=== PATIENT | female | born 1955 | race Caucasian/White ===

== ENCOUNTER 2018-03-26 15:20 | Outpatient (CLI) | payer BC, SELFPAY ==
--- NOTE | 2018-03-26 15:06 | DI.RAD_ITS ---
SYMPTOM/DIAGNOSIS: RIGHT KNEE PAIN M25.561, S/P TWISTING. RIGHT KNEE: 03/26 Three views were obtained. There appears to be a knee joint effusion. Minimal hypertrophic degenerative spurring noted involving the bones of the knee. No other bony abnormality seen.
== END 2018-03-26 15:40 ==
PROVIDERS: PCP Internal Medicine; Visit Provider Nurse Practitioner
DX: M25.461 Effusion, right knee (principal); M76.891 Other specified enthesopathies of right lower limb, excluding foot; M25.561 Pain in right knee
CPT/HCPCS: 73562

== ENCOUNTER 2018-11-05 16:23 | Outpatient (CLI) | payer BC, SELFPAY ==
--- NOTE | 2018-11-05 15:15 | DI.RAD_ITS ---
SYMPTOM/DIAGNOSIS: LLQ PAIN, DIARRHEA, R10.32 FLAT AND UPRIGHT ABDOMEN: The visualized portions of the lung bases appear clear. There is no evidence of free air. There is a moderate quantity of stool, greater on the right. There are no dilated loops of large or small bowel. No pathologic calcifications are seen. IMPRESSION: No acute abnormality.
== END 2018-11-05 16:43 ==
PROVIDERS: PCP Internal Medicine; Visit Provider Nurse Practitioner
DX: R10.32 Left lower quadrant pain (principal); R19.7 Diarrhea, unspecified
CPT/HCPCS: 74019

== ENCOUNTER 2018-11-06 08:33 | Outpatient (CLI) | payer BC, SELFPAY ==
[2018-11-06 09:01] LABS: HCT 39.5 % (36.0-46.0); HGB 13.4 g/dL (12.0-15.5); Mean Corp. HGB Concentration 33.9 g/dL (32.0-36.0); Mean Corpuscular Hemoglobin 30.9 pg (27.0-33.0); Mean Corpuscular Volume 91.2 fL (80-95); Mean Platelet Volume 9.1 fL (8.0-11.0); Platelet Count 390 x1000/uL (130-400); RBC 4.33 m/cumm (4.00-5.20); RBC Distribution Width 12.8 % (11.7-14.6); White Blood Cell Count 7.96 k/cumm (4.4-10.8)
[2018-11-06 10:04] LABS: ALT 43 U/L (12-78); AST 25 U/L (15-37); Albumin 3.3 g/dL (3.4-5.0); Alkaline Phosphatase 265 U/L (46-116); Anion Gap 11.2 mmol/L (3-11); BUN 13 mg/dL (7-18); Bilirubin, Total 0.4 mg/dL (0.2-1.0); CO2 27.8 mmol/L (21.0-32.0); CREATININE 0.75 mg/dL (0.55-1.02); Calcium 9.4 mg/dL (8.5-10.1); Chloride 103 mmol/L (98-107); Cholesterol 210 mg/dL (50-200); Glucose 113 mg/dL (70-100); HDL Cholesterol 63 mg/dL (40-60); LDL CHOLESTEROL 122 mg/dL (<100); Potassium 4.5 mmol/L (3.5-5.1); Sodium 142 mmol/L (136-145); Total Protein 7.2 g/dL (6.4-8.2); Triglyceride 88 mg/dL (30-150)
== END 2018-11-06 08:53 ==
PROVIDERS: PCP Internal Medicine; Visit Provider Nurse Practitioner
DX: E66.9 Obesity, unspecified (principal); R10.9 Unspecified abdominal pain
CPT/HCPCS: 36415; 80053; 80061; 83721; 85027

== ENCOUNTER 2018-11-09 01:02 | Outpatient (CLI) | payer BC, SELFPAY ==
--- NOTE | 2018-11-09 14:30 | DI.MAMMO_ITS ---
SYMPTOMS/DIAGNOSIS: SCREENING, Z12.31 BILATERAL SCREENING MAMMOGRAMS: Mammograms were interpreted according to the usual protocol including computer analysis with CAD system, tomosynthesis and C view imaging. Comparison is made with exams from 2011 through 2016. The breasts are composed of heterogeneously dense, nodular fibroglandular tissue. Breast density category C. An area of nodularity is again noted in the upper outer quadrant of the left breast. No suspicious masses or suspicious microcalcifications are seen. IMPRESSION: Category 2C, negative mammogram with benign findings. Yearly screening mammography is recommended. MQSA ASSESSMENT OF FINDINGS: Negative with benign findings. Category 2. Patient will receive a letter notifying them of these results. Bi-RADS category C. The breasts are heterogeneously dense, which may obscure small masses.
== END 2018-11-09 01:22 ==
PROVIDERS: PCP Internal Medicine; Visit Provider Nurse Practitioner
DX: Z12.31 Encounter for screening mammogram for malignant neoplasm of breast (principal)
CPT/HCPCS: 77063; 77067

== ENCOUNTER 2018-11-15 01:16 | Outpatient (CLI) | payer BC, SELFPAY ==
--- NOTE | 2018-11-15 07:33 | DI.US_ITS ---
SYMPTOM/DIAGNOSIS: ABD PAIN AFTER EATING, R10.9 ABDOMEN ULTRASOUND: The aorta and vena cava are normal. The liver is normal. The gallbladder wall is 1.6 mm. in thickness. There are multiple small mobile echogenic foci within the gallbladder consistent with small gallstones, the largest stone measures up to 11 mm. in maximal diameter. There is no evidence of biliary obstruction. The pancreas is normal. The spleen is normal. The kidneys are normal. There is no evidence of free fluid. CONCLUSION: Cholelithiasis is demonstrated. There is no evidence of ductal dilatation and the examination is otherwise unremarkable.
== END 2018-11-15 01:36 ==
PROVIDERS: PCP Internal Medicine; Visit Provider Nurse Practitioner
DX: R10.9 Unspecified abdominal pain (principal); K80.20 Calculus of gallbladder without cholecystitis without obstruction
CPT/HCPCS: 76700

== ENCOUNTER 2019-06-05 16:10 | Outpatient (REF) | payer BC, SELFPAY ==
[2019-06-05 19:36] LABS: Alkaline Phosphatase 146 U/L (46-116)
[2019-06-05 19:43] LABS: GGT 93 U/L (5-55)
== END 2019-06-05 16:30 ==
LOC: LBO 16:10
PROVIDERS: PCP Nurse Practitioner; Visit Provider Nurse Practitioner
DX: R74.8 Abnormal levels of other serum enzymes (principal)
CPT/HCPCS: 82977; 84075

== ENCOUNTER 2020-08-12 02:10 | Outpatient (CLI) | payer MEDICARE, SELFPAY ==
--- NOTE | 2020-08-12 07:15 | DI.MAMMO_ITS ---
EXAM: MG MAMMO SCREENING CLINICAL HISTORY: screening,Z12.39. TECHNIQUE: Bilateral full field digital CC and MLO mammographic images were obtained with 3D tomosyn thesis and utilizing computer aided detection (CAD). COMPARISON: Prior mammograms dating back to 2010, the most recent being October 2018. Breast ultrasound 2016 was reviewed FINDINGS: Fibroglandular tissue is nodular and dense. In the anterior left breast there is asymmetric density which is unchanged from prior studies and the refore most probably benign. On 3D imaging of the left breast there is a well-defined oval noncalcif ied nodule measuring 5 x 4 millimeters located 7 cm in from the nipple. There is no significant arc hitectural distortion nor skin thickening-retraction. IMPRESSION: Nodular dense breast fibroglandular pattern. Left breast 5 x 4 millimeter nodule as described above. Spot compression view and ultrasound recomme nded BI-RADS Category 0 - Assessment Incomplete: Need additional imaging evaluation Breast Density - Category C - Heterogeneously dense Breast density Category C or D implies that the patient has dense breast tissue. Dense breast tissue can make it harder to find cancer on a mammogram. Dense breast tissue is also associated with an incr eased risk of breast cancer. This information about the result of the mammogram report was provided to the patient to raise their awareness. Use this report when you speak with the patient about their risks for breast cancer, which includes their family history. At that time, you may recommend additional screening tests (Ultrasoun d or MRI) as these tests may add significant information. A negative radiographic report should not delay biopsy if a dominant or clinically suspicious mass is present. Up to ten percent of cancers are not identified on mammography. A negative report may reinforce clinical impression. Adenosis and dense breasts may obscure an underlying neoplasm. False positive reports average 6 to 10%. Patient will receive a letter notifying them of these results.
== END 2020-08-12 02:11 ==
LOC: DI 02:10
PROVIDERS: PCP Nurse Practitioner; Visit Provider Nurse Practitioner
DX: Z12.31 Encounter for screening mammogram for malignant neoplasm of breast (principal); R92.8 Other abnormal and inconclusive findings on diagnostic imaging of breast
CPT/HCPCS: 77063; 77067

== ENCOUNTER 2020-08-12 03:00 | Outpatient (CLI) | payer MEDICARE, SELFPAY ==
[2020-08-12 11:12] LABS: HCT 42.8 % (36.0-46.0); HGB 14.3 g/dL (11.2-15.7); MCHC 33.4 % (32.0-36.0); MCV 92.6 fL (80-95); MPV 8.9 fL (8.0-11.0); Platelet Count 346 10^3/uL (130-400); RBC 4.62 10^6/uL (3.93-5.22); RDW 12.4 % (11.7-14.6); RDW-SD 42.5 fL
[2020-08-12 11:59] LABS: Hemoglobin A1C 6.1 % (<5.7)
[2020-08-12 14:44] LABS: ALT 30 U/L (14-59); AST 18 U/L (15-37); Albumin 3.8 g/dL (3.4-5.0); Alkaline Phosphatase 132 U/L (46-116); Anion Gap 9.7 mmol/L (3-11); BUN 14 mg/dL (7-18); Bilirubin, Total 0.4 mg/dL (0.2-1.0); CO2 26.3 mmol/L (21.0-32.0); CREATININE 0.9 mg/dL (0.55-1.02); Calcium 9.2 mg/dL (8.5-10.1); Calculated LDL 149 mg/dL (<100); Chloride 103 mmol/L (98-107); Cholesterol 245 mg/dL (<200); Glucose 132 mg/dL (74-106); HDL Cholesterol 63 mg/dL (40-60); Potassium 4.3 mmol/L (3.5-5.1); Sodium 139 mmol/L (136-145); Total Protein 7.1 g/dL (6.4-8.2); Triglyceride 165 mg/dL (<150)
== END 2020-08-12 03:01 | disposition home or self-care (01) ==
LOC: LBO 03:01
PROVIDERS: PCP Nurse Practitioner; Visit Provider Nurse Practitioner
DX: R73.01 Impaired fasting glucose (principal); R79.89 Other specified abnormal findings of blood chemistry; Z13.6 Encounter for screening for cardiovascular disorders
CPT/HCPCS: 36415; 80053; 80061; 85027; 83036

== ENCOUNTER 2020-08-13 01:19 | Outpatient (CLI) | payer MEDICARE, SELFPAY ==
--- NOTE | 2020-08-13 | DI.MAMMO_ITS ---
EXAM: MG MAMMO SCREEN CALL BACK UNI CLINICAL HISTORY: F/U MAMMO, ASYMMETRIC DENSITY LT BREAST,R92.8. TECHNIQUE: Full field digital CC and MLO spot 3D compression mammographic images were obtained with 3D tomosynthesis and utilizing computer aided detection (CAD). COMPARISON: Prior mammograms, the most recent being yesterday's screening mammogram 08/12/2020. FINDINGS: Additional views do not dissipate the newly described left breast nodule. Left breast ultrasound performed following today's diagnostic mammogram reveals multiple hemorrhagic microcyst, 1 of which corresponds to this nodule. See that separate ultrasound report . Most importa ntly, the ultrasound does not reveal a new solid lesion in all 4 quadrants of the left breast. IMPRESSION: Hemorrhagic microcyst corresponding to the new nodule on the mammogram. Appropriate follow-up is keep this patient yearly mammogram schedule, with earlier imaging if a self detected breast changes noted. BI-RADS Category 2 - Benign Findings Breast Density - Category C - Heterogeneously dense Breast density Category C or D implies that the patient has dense breast tissue. Dense breast tissue can make it harder to find cancer on a mammogram. Dense breast tissue is also associated with an incr eased risk of breast cancer. This information about the result of the mammogram report was provided to the patient to raise their awareness. Use this report when you speak with the patient about their risks for breast cancer, which includes their family history. At that time, you may recommend additional screening tests (Ultrasoun d or MRI) as these tests may add significant information. A negative radiographic report should not delay biopsy if a dominant or clinically suspicious mass is present. Up to ten percent of cancers are not identified on mammography. A negative report may reinforce clinical impression. Adenosis and dense breasts may obscure an underlying neoplasm. False positive reports average 6 to 10%. Patient will receive a letter notifying them of these results.
--- NOTE | 2020-08-13 | DI.US_ITS ---
EXAM: US BREAST LT LIMITED CLINICAL HISTORY: F/U MAMMO, ASYMMETRIC DENSITY LT BREAST,R92.8. TECHNIQUE: Limited ultrasound of the left breast was performed. COMPARISON: Today's diagnostic mammogram was reviewed. Also prior mammograms including the screenin g mammogram of 08/12/2020 FINDINGS: At the 1 o'clock position there is a 4 x 3 millimeter microcysts. At the 2 o'clock position there ar e 2 findings. The deeper finding is a 10 x 6 millimeter simple cyst. More superficially there is a 9 x 6 millimeter hemorrhagic cyst. At the 4 o'clock position there is a 3 millimeter microcysts. This probably corresponds to the findi ng on the mammogram. At 8 o'clock position there are 2 microcysts measuring 3 and 5 millimeters. No ominous solid lesions in all 4 quadrants IMPRESSION: Multiple microcysts, both simple and hemorrhagic. One of these corresponds to the new nodule on the mammogram. Most importantly, there are no new ominous solid lesions. Appropriate follow-up is to keep this patient yearly mammogram schedule and I recommend repeat ultras ound examination at the time of the next yearly mammogram, with earlier imaging if a self detected br east change is noted.. BI-RADS Category 2 - Benign Findings Breast Density - Category C - Heterogeneously dense Breast density Category C or D implies that the patient has dense breast tissue. Dense breast tissue can make it harder to find cancer on a mammogram. Dense breast tissue is also associated with an incr eased risk of breast cancer. This information about the result of the mammogram report was provided to the patient to raise their awareness. Use this report when you speak with the patient about their risks for breast cancer, which includes their family history. At that time, you may recommend additional screening tests (Ultrasoun d or MRI) as these tests may add significant information. A negative radiographic report should not delay biopsy if a dominant or clinically suspicious mass is present. Up to ten percent of cancers are not identified on mammography. A negative report may reinforce clinical impression. Adenosis and dense breasts may obscure an underlying neoplasm. False positive reports average 6 to 10%. Patient will receive a letter notifying them of these results.
== END 2020-08-13 01:20 ==
LOC: DI 01:19
PROVIDERS: PCP Nurse Practitioner; Visit Provider Nurse Practitioner
DX: Z12.31 Encounter for screening mammogram for malignant neoplasm of breast (principal); R92.8 Other abnormal and inconclusive findings on diagnostic imaging of breast; N60.12 Diffuse cystic mastopathy of left breast
CPT/HCPCS: 76642; 77063; 77067

== ENCOUNTER 2020-08-25 02:48 | Outpatient (CLI) | payer MEDICARE, SELFPAY ==
[2020-08-26 12:22] LABS: COVID-19 RT-PCR UVMMC Result Positive (Negative)
== END 2020-08-25 02:49 | disposition home or self-care (01) ==
PROVIDERS: PCP Nurse Practitioner; Visit Provider Nurse Practitioner
DX: Z20.822 Contact with and (suspected) exposure to COVID-19 (principal)
CPT/HCPCS: U0003; U0005

== ENCOUNTER 2020-08-28 05:35 | Outpatient (CLI) | payer MEDICARE, SELFPAY ==
[2020-08-28 12:35] VITALS: BP 147/87; PULSE 111; RESP 24; TEMP 36.7; O2SAT 95
[2020-08-28] MEDS: Normal Saline 500 ML 30 ML IV (13:34)
[2020-08-28] MEDS: Normal Saline Flush 10 ML SYR IVP (13:35)
[2020-08-28 13:42] VITALS: BP 128/78; PULSE 83; RESP 20; TEMP 36.8; O2SAT 95
[2020-08-28 14:09] VITALS: BP 127/80; PULSE 81; RESP 22; TEMP 36.8; O2SAT 94
[2020-08-28 14:45] VITALS: BP 132/81; PULSE 85; RESP 18; TEMP 36.8; O2SAT 98
[2020-08-28 15:09] VITALS: BP 125/79; PULSE 73; RESP 18; TEMP 36.9; O2SAT 96
== END 2020-08-28 05:36 | disposition home or self-care (01) ==
LOC: INF 05:35
PROVIDERS: PCP Nurse Practitioner; Visit Provider Family Medicine
DX: U07.1 COVID-19 (principal)
CPT/HCPCS: 96365

== ENCOUNTER → 2021-09-03 03:07 | Outpatient (CLI) | payer MEDICARE, SELFPAY ==
--- NOTE | 2021-09-03 07:30 | DI.RAD_ITS ---
Exam(s) XR HAND LT COMPLETE EXAM: XR HAND LT COMPLETE CLINICAL HISTORY: pain base of thumb left,m79.642,m79.646. TECHNIQUE: 2D digital imaging was performed. COMPARISON: CR RIGHT HAND COMPLETE from 10/29/2009 FINDINGS: No evidence of fracture or subluxation nor abnormal soft tissue calcifications. Degenerative changes are noted at the 1st carpometacarpal joint. There are no erosions. There is focal soft tissue swel ling dorsal to the proximal interphalangeal joint of the 2nd-index finger, best seen on the lateral v iew. Similar finding also seen at the level of the 3rd-middle fingers same location. This appears t o be more prominent in the 2nd-index finger. Mild degenerative changes in the DIP joints. IMPRESSION: Focal soft tissue swelling dorsally at the level of the PIP joints of the 2nd and 3rd fingers. No ca lcification or radiopaque foreign body at these levels. No bone destruction. No erosions. DATA REPOSITORY: RADIATION DOSE DELIVERED:
== END ==
PROVIDERS: PCP Nurse Practitioner; Visit Provider Nurse Practitioner
DX: M79.642 Pain in left hand (principal); M79.645 Pain in left finger(s); M25.48 Effusion, other site
CPT/HCPCS: 73130

== ENCOUNTER 2021-09-22 02:31 | Outpatient (CLI) | payer MEDICARE, SELFPAY ==
--- NOTE | 2021-09-22 07:45 | DI.MAMMO_ITS ---
Exam(s) MAMMO SCREENING EXAM: MAMMO SCREENING CLINICAL HISTORY: screening Z12.39 FOR BREAST CANCER TECHNIQUE: Mammograms were interpreted according to the usual protocol including computer analysis w [employer] CAD system, tomosynthesis and C-view imaging. COMPARISON: 2012 through 2020 FINDINGS: The breasts are composed of heterogeneously dense fibroglandular densities, Breast Density category C . No suspicious masses or suspicious microcalcifications are seen. Nodule in the upper outer quadrant left breast seen on previous exams to represent a cyst. Other smaller nodules bilaterally. No skin thickening or abnormal axillary lymph nodes are seen. There has been no significant change from prior exams. IMPRESSION: BI-RADS Cat 2 - Benign Findings Yearly screening mammography is recommended. Breast Density Category C, heterogeneously Dense. The mammogram demonstrates the patient's breast tissue is dense. Dense breast tissue is very common a nd is not abnormal but dense breast tissue can make it harder to find cancer on a mammogram. Also, de nse breast tissue may increase breast cancer risk. This information about the result of the mammogram report was provided to the patient to raise their awareness. Use this report when you speak with the patient about their risks for breast cancer, which includes their family history. At that time, you may recommend additional screening tests (Ultrasound or MRI) as they might be useful based on their r isk. A negative radiographic report should not delay biopsy if a dominant or clinically suspicious mass is present. Up to ten percent of cancers are not identified on mammography. A negative report may reinforce clinical impression. Adenosis and dense breasts may obscure an underlying neoplasm. False positive reports average 6 to 10%.
== END 2021-09-22 02:51 ==
PROVIDERS: PCP Nurse Practitioner; Visit Provider Nurse Practitioner
DX: Z12.31 Encounter for screening mammogram for malignant neoplasm of breast (principal); R92.8 Other abnormal and inconclusive findings on diagnostic imaging of breast
CPT/HCPCS: 77063; 77067

== ENCOUNTER 2022-06-09 11:01 | Outpatient (REF) | payer MEDICARE, SELFPAY ==
[2022-06-11 15:01] LABS: Influenza A RNA Result Positive (Negative); Influenza B RNA Result Negative (Negative); RSV RNA Result Negative (Negative)
[2022-06-11 15:05] LABS: COVID-19 RT-PCR UVMMC Result Negative (Negative)
== END 2022-06-09 11:02 | disposition home or self-care (01) ==
LOC: LBN 11:01
PROVIDERS: Nurse Practitioner Family; PCP Nurse Practitioner; Visit Provider Nurse Practitioner
DX: J02.9 Acute pharyngitis, unspecified (principal); R05.9 Cough, unspecified; Z20.822 Contact with and (suspected) exposure to COVID-19
CPT/HCPCS: 87631; U0003; 87070

== ENCOUNTER → 2023-02-01 02:21 | Outpatient (CLI) | payer MEDICARE, SELFPAY ==
--- NOTE | 2023-02-01 07:45 | DI.MAMMO_ITS ---
Exam(s) MAMMO SCREENING EXAM: MAMMO SCREENING CLINICAL HISTORY: screening,Z12.39 TECHNIQUE: Mammograms were interpreted according to the usual protocol including computer analysis w [employer] CAD system, tomosynthesis and C-view imaging. COMPARISON: 2012 through 2021 FINDINGS: The breasts are composed of heterogeneously dense fibroglandular densities, Breast Density category C . No suspicious masses or suspicious microcalcifications are seen. Area of nodularity in the upper out er quadrant of the left breast again noted, seen to be a cyst on prior ultrasound. No skin thickening or abnormal axillary lymph nodes are seen. There has been no significant change from prior exams. IMPRESSION: BI-RADS Cat 2 - Benign Findings Yearly screening mammography is recommended. Breast Density Category C, heterogeneously Dense. The mammogram demonstrates the patient's breast tissue is dense. Dense breast tissue is very common a nd is not abnormal but dense breast tissue can make it harder to find cancer on a mammogram. Also, de nse breast tissue may increase breast cancer risk. This information about the result of the mammogram report was provided to the patient to raise their awareness. Use this report when you speak with the patient about their risks for breast cancer, which includes their family history. At that time, you may recommend additional screening tests (Ultrasound or MRI) as they might be useful based on their r isk. A negative radiographic report should not delay biopsy if a dominant or clinically suspicious mass is present. Up to ten percent of cancers are not identified on mammography. A negative report may reinforce clinical impression. Adenosis and dense breasts may obscure an underlying neoplasm. False positive reports average 6 to 10%.
== END ==
PROVIDERS: PCP Nurse Practitioner; Visit Provider Nurse Practitioner
DX: Z12.31 Encounter for screening mammogram for malignant neoplasm of breast (principal)
CPT/HCPCS: 77063; 77067

== ENCOUNTER → 2023-03-07 01:48 | Outpatient (CLI) | payer MEDICARE, SELFPAY ==
--- NOTE | 2023-03-07 07:45 | DI.DEXA_ITS ---
Exam(s) XR DEXA BONE DENSITY W/WO ZIA EXAM: XR DEXA BONE DENSITY W/WO ZIA CLINICAL HISTORY: screening for osteoporosis in postmenopausal woman,z78.0 TECHNIQUE: [employer] C densitometer analysis of left hip, lumbar spine and left forearm. Lat eral survey image of the thoracic and lumbar spine. COMPARISON: No exams were available for comparison FINDINGS: Lateral view of the thoracic and lumbar spine shows kyphosis but no evidence of compression fractures . Bone mineral density measurements of the lumbar spine correspond to a total T-score of 0.3, in the n ormal range. Bone mineral density measurements of the left hip correspond to a total T-score of -0.5. The femora l neck T-score is -0.9, in the normal range.. Theleft forearm bone mineral density measurements correspond to a T-score of the distal 3rd of 0.1, in the normal range.. IMPRESSION: Normal bone mineral density.
== END ==
PROVIDERS: PCP Nurse Practitioner; Visit Provider Nurse Practitioner
DX: Z78.0 Asymptomatic menopausal state (principal); Z13.820 Encounter for screening for osteoporosis
CPT/HCPCS: 77080

== ENCOUNTER → 2023-03-30 11:35 | Outpatient (BNVA) | payer MEDICARE, SELFPAY | PROVIDERS: PCP Nurse Practitioner; Referring Provider Nurse Practitioner; Visit Provider Physical Therapy Assistant | DX: Z12.11 Encounter for screening for malignant neoplasm of colon (principal); Z80.0 Family history of malignant neoplasm of digestive organs ==

== ENCOUNTER 2023-04-28 06:10 | Day surgery (SDC) | payer MEDICARE, SELFPAY ==
--- NOTE | 2023-04-27 21:58 | W.COLOREPORT ---
Date of service: 04/28/23 Time of Service: 08:19 Colonoscopy Report Date of procedure: 04/28/23 Pre-op diagnosis general: CRC screening /family hx of CRC Post-op diagnosis procedure note: other (diverticula) Surgeon: Saritha Lloyd Anesthesia Type: General:No Airway Estimated blood loss (mL): 0 Pathology: none sent Complications: None Disposition: same day Prep: Miralax/Dulcolax Retraction Time: n/a Procedure Description: After informed consent was obtained the patient was taken to the procedure room and placed in a left decubitous position. Monitors were applied and a time out was done. The patients name, date of , procedure, allergies to medications and metal in their body was reviewed. The patient was then sedated. Once sedated and comfortable a rectal exam was done. External exam was normal. Internal exam revealed a normal sphincter tone and no palpable masses. The scope was then introduced and retrofelexed. No internal hemorrhoids were identified. The prep was BBPS 3 in left colon. She has moderate diverticular disease of the sigmoid colon. There are multiple medium mouth diverticula in the sigmoid colon. There is no signs of active bleeding or infection. Once we get to 30 cm, I am unable to pass the scope or visualize the lumen. We tried multiple procedures including placing the patient patient on her back and applying abdominal pressure, but I am unable to pass the scope. Procedure was abandoned for patient's safety. Patient will go for a barium enema. The patient tolerated the procedure well and there were no immediate complications. Follow up: After barium enema
--- NOTE | 2023-04-27 21:58 | W.PM.DSUDISC ---
Date of service: 04/28/23 Time of Service: 08:21 Discharge Plan Disposition Patient Disposition: Home Condition: Good Discharge Details Reason For Visit: CRC screening Attending Provider: Saritha Lloyd Primary Care Provider: Aicha Frye Home Meds and New Rx's Prescriptions: Continued omega-3 fatty acids 500 mg capsule 500 mg PO DAILY cholecalciferol (vitamin D3) 50 mcg (2,000 unit) capsule 50 mcg PO DAILY B-complex with vitamin C Tablet 1 tab PO DAILY bupropion HCl [Wellbutrin XL] 150 mg tablet extended release 24 hr 150 mg PO QAM Qty: 90 3RF sertraline 100 mg tablet See Rx Instructions .ROUTE .COMPLEX Qty: 90 3RF Dose Instruction: TAKE 1 TABLET BY MOUTH DAILY Rx Instructions: TAKE 1 TABLET BY MOUTH DAILY Discontinued polyethylene glycol 3350 17 gram/dose powder 238 g PO ONCE Qty: 238 0RF Rx Instructions: take per colonoscopy instructions bisacodyl [Dulcolax (bisacodyl)] 5 mg tablet,delayed release (DR/EC) 5 mg PO ONCE Qty: 4 0RF Rx Instructions: take per colonoscopy instructions Discharge Instructions Additional Instructions: [facility] Colonoscopy Post-Op Instructions Instructions for Everyone who is given Anesthesia: For your safety, please do the following for the next twenty-four (24) hours: *Do Not operate a motor vehicle (car, truck, motorcycle, etc.) *Do Not drink alcoholic beverages or use any recreational drugs for the first 24 hours or while taking pain medications. The medications in your body may have a reaction that can be dangerous. *Do Not make any important decisions or sign any important papers. Findings: Diverticula-make sure you are moving your bowels on a regular basis and not straining to go to the bathroom. If you find that you are having issues with constipation/straining, it is recommended you to start a fiber supplement daily such as Metamucil. Follow up: Barium enema. The hospital will contact you to schedule 1. No lifting over 20 pounds or strenuous activity for the first 24 hours after your procedure. After 24 hours there are no restrictions on your activity but you may feel fatigued for a few days. 2. After you arrive home you may have a light meal and return to your normal diet as you can tolerate it without feeling sick to your stomach. 3. You may have a bloated, gaseous feeling in your belly (abdomen) after a colonoscopy. Passing gas and belching will help. Walking or lying down on your left side with your knees flexed may relieve the discomfort. Call the office at [phone] (Office) or [phone] (Hospital) right away if you notice any of the following: a.Vomiting of blood or ?coffee ground stools?. b.Rectal bleeding 1Tbsp, blood clots or continuous bleeding. c.Severe belly (abdominal) pain. d.A hard distended belly (abdomen) and an inability to pass gas. 4. Please don?t expect to have a normal BM (bowel movement) for 2-3 days after your procedure. 5. If there are questions regarding the findings of your procedure, please contact your doctor 6. If you are unable to contact your doctor with a problem, contact the hospital at [phone]. 7. Continue all your regular medications unless directed otherwise. I understand the above instructions and have no questions. Signature of Patient or Adult Escort Name of Responsible Adult Escort Signature of Nurse Date/Time DIVERTICULAR DISEASE OVERVIEW???A diverticulum is a pouch-like structure that can form through points of weakness in the muscular wall of the colon (ie, at points where blood vessels pass through the wall). Diverticulosis affects men and women equally. The risk of diverticular disease increases with age. It occurs throughout the world but is seen more commonly in developed countries. WHAT IS DIVERTICULAR DISEASE? Diverticulosis???Diverticulosis merely describes the presence of diverticula. Diverticulosis is often found during a test done for other reasons, such as flexible sigmoidoscopy, colonoscopy, or barium enema. Most people with diverticulosis have no symptoms and will remain symptom free for the rest of their lives. A person with diverticulosis may have diverticulitis, or diverticular bleeding. Diverticulitis???Inflammation of a diverticulum (diverticulitis) occurs when there is thinning and breakdown of the diverticular wall. This may be caused by increased pressure within the colon or by hardened particles of stool, which can become lodged within the diverticulum. The symptoms of diverticulitis depend upon the degree of inflammation present. The most common symptom is pain in the left lower abdomen. Other symptoms can include nausea and vomiting, constipation, diarrhea, and urinary symptoms such as pain or burning when urinating or the frequent need to urinate. Diverticulitis is divided into simple and complicated forms. ?Simple diverticulitis, which accounts for 75 percent of cases, is not associated with complications and typically responds to medical treatment without surgery. ?Complicated diverticulitis occurs in 25 percent of cases and usually requires surgery. Complications associated with diverticulitis can include the following: ?Abscess ? a localized collection of pus ?Fistula ? an abnormal tract between two areas that are not normally connected (eg, bowel and bladder) ?Obstruction ? a blockage of the colon ?Peritonitis ? infection involving the space around the abdominal organ ?Sepsis ? overwhelming body-wide infection that can lead to failure of multiple organs Diverticular bleeding???Diverticular bleeding occurs when a small artery located within a diverticulum is eroded and bleeds into the colon. Diverticular bleeding usually causes painless bleeding from the rectum. In approximately 50 percent of cases, the person will see maroon or bright red blood with bowel movements. Is bleeding with a bowel movement normal?It is not normal to see blood in a bowel movement; this can be a sign of several conditions, most of which are not serious (eg, hemorrhoids) but some of which are serious and require immediate treatment. Anyone who sees blood after a bowel movement should consult with their healthcare provider to determine if further testing or evaluation is needed. DIVERTICULOSIS AND DIVERTICULITIS DIAGNOSIS???Diverticulosis is often found during tests performed for other reasons. ?Barium?enema ? This is an x-ray study that uses barium in an enema to view the outline of the lower intestinal tract. This is an older test and has been largely replaced by computed tomography (CT) scan. ?Flexible sigmoidoscopy ? This is an examination of the inside of the sigmoid colon with a thin, flexible tube that contains a camera. ?Colonoscopy ? This is an examination of the inside of the entire colon. ?CT scan ? A CT scan is often used to diagnose diverticulitis and its complications. If diverticulitis (not just diverticulosis) is suspected, the above three tests should not be used because of the risk of perforation. TREATMENT Diverticulosis???People with diverticulosis who do not have symptoms do not require treatment. However, most clinicians recommend increasing fiber in the diet, which can help to bulk the stools and possibly prevent the development of new diverticula, diverticulitis, or diverticular bleeding. Fiber is not proven to prevent these conditions in all patients but may help to control recurrent episodes in some. Increase fiber???Fruits and vegetables are a good source of fiber.? Fiber content of packaged foods can be calculated by reading the nutrition label. Seeds and nuts???Patients with diverticular disease have historically been advised to avoid whole pieces of fiber (such as seeds, corn, and nuts) because of concern that these foods could cause an episode of diverticulitis. However, this belief is completely unproven. We do not suggest that patients with diverticulosis avoid seeds, corn, or nuts. Diverticulitis???Treatment of diverticulitis depends upon how severe your symptoms are. Home treatment???If you have mild symptoms of diverticulitis (mild abdominal pain, usually left lower abdomen), you can be treated at home with a clear liquid diet and oral antibiotics. However, if you develop one or more of the following signs or symptoms, you should seek immediate medical attention: ?Temperature >100.1?F (38?C) ?Worsening or severe abdominal pain ?An inability to tolerate fluids Hospital treatment???If you have moderate to severe symptoms, you may be hospitalized for treatment. During this time, you are not allowed to eat or drink; antibiotics and fluids are given into a vein. If you develop an abscess of the colon, you may require drainage of the abscess (usually performed by placing a drainage tube across the abdominal wall) or by surgically opening the affected area. Surgery???If you develop a generalized infection in the abdomen (peritonitis), you will usually require an emergency operation. A two-part operation may be necessary in some cases. ?The first operation involves removal of the diseased colon and creation of a colostomy. A colostomy is an opening between the colon and the skin, where a bag is attached to collect waste from the intestine. The lower end of the colon is temporarily sewed closed to allow it to heal. ?Approximately three to six months later, a second operation is performed to reconnect the two parts of the colon and close the opening in the skin. You are then able to empty your bowels through the rectum. Sometimes patients require up to a year to recover from the first operation, depending on how sick they were. In non-emergency situations, the diseased area of the colon can be removed and the two ends of the colon can be reconnected in one operation, without the need for a colostomy. Surgery versus medical therapy???An operation to remove the diseased area of the colon may be necessary if you do not improve with medical therapy. After an episode of uncomplicated diverticulitis, elective surgery is generally not required as the risk of another attack or requiring emergency surgery is low. However, patients with persistent symptoms attributable to diverticulitis, a history of complicated diverticulitis, or a compromised immune system should be evaluated for possible surgery to prevent another attack. In such patients, another attack has been associated with a higher risk of complications or . Of course, the decision will also depend in part upon your other medical conditions and ability to undergo surgery. In many cases, an elective operation can be performed laparoscopically, using small incisions, rather than the typical vertical (up and down) abdominal incision. Laparoscopic surgery usually allows you to recover more quickly and shortens the hospital stay. After diverticulitis resolves???After an episode of diverticulitis resolves, if you have not had a recent colonoscopy, the entire length of the colon should be evaluated to determine the extent of disease and to rule out the presence of abnormal lesions such as polyps or cancer. Recommended tests include colonoscopy, barium enema and sigmoidoscopy, or CT colonography. Diverticular bleeding???Most cases of diverticular bleeding resolve on their own. However, some people will need further testing or treatment to stop bleeding, which may include a colonoscopy, angiography (a treatment that blocks off the bleeding artery), bleeding scan, or surgery. DIVERTICULAR DISEASE PROGNOSIS Diverticulosis???Over time, diverticulosis may cause no problems or it may cause episodes of bleeding and/or diverticulitis. Approximately 15 to 25 percent of people with diverticulosis will develop diverticulitis, while 5 to 15 percent will develop diverticular bleeding. Diverticulitis???Approximately 85 percent of people with uncomplicated diverticulitis will respond to medical treatment, while approximately 15 percent of patients will need an operation. After successful treatment for a first attack of diverticulitis, one-third of patients will remain asymptomatic, one-third will have episodic cramps without diverticulitis, and one-third will go on to have a second attack of diverticulitis. The prognosis tends to remain similar following a second attack of diverticulitis. Only 10 percent of people remain symptom-free after a second attack. Subsequent attacks tend to be of similar severity, not increasing in severity as previously believed. High Fiber Diet What is Dietary Fiber? All fiber comes from plants, bushes, timothy or trees.? Of course, the ones that we eat provide us with fruits, vegetables and grains.? There are many different types of fiber but the three that are most important to the health of the body are: Insoluble Fiber This fiber does not dissolve in water, nor is it fermented by the bacteria residing in the colon.? Rather, it retains water and in so doing, helps to promote a larger, bulkier and more regular bowel activity.? This, in turn, may be important in preventing disorder such as diverticulosis and hemorrhoids, and in sweeping out certain toxins and cancer causing carcinogens.? Sources of insoluble fiber are: ? whole grain wheat and other whole grains ? corn bran, including popcorn, unflavored and unsweetened ? nuts and seeds ? potatoes and the skins from most fruits from trees such as apples, bananas and avocados ? many green vegetables such as green beans, zucchini, celery and cauliflower ? some fruit plants such as tomatoes and kiwi Soluble Fiber These fibers are fermented or used by the colon bacteria as a food source or nourishment.? When these good bacteria grow and thrive, many health benefits occur in both the colon and the body.? Soluble fiber is present in some degree in most edible plant foods, but the ones with the most soluble fiber include: ? legumes such as peas and most beans, including soybeans ? oats, rye and barley ? many fruits such as berries, plums, apples bananas and pears ? certain vegetables such as broccoli and carrots ? most root vegetables ? psyllium husk supplement products Benefits of a High Fiber Diet The health benefits of a high fiber diet, consumed on a regular basis and reaching recommended amounts (below), are now fairly well-defined. There are some additional benefits in the early research stage with the prebiotic soluble fibers. What is now known regarding a high fiber diet include: Bowel Regularity A high fiber diet promotes regularity with a softer, bulkier and regular stool pattern. This decreases the chance of hemorrhoids, diverticulosis and perhaps colon cancer. Cholesterol and Reduced Triglycerides The soluble fibers are the ones that will reduce cholesterol levels when used on a regular basis. Psyllium husk and prebiotic soluble fiber will also reduce cholesterol. They may also reduce the incidence of coronary heart disease. Oats, flax seeds and legumes or beans are the recommended fibers. Colon Polyps and Cancer It is still not certain if a high fiber diet helps prevent colon cancer. Considerable research suggests that this may occur. Certainly it makes sense to increase regularity and so speed the movement of cancer causing carcinogens through the bowel. In addition, reducing a heavy meat diet reduces the bile flow from the liver in a favorable way. This, too, reduces the amount of carcinogens that reach and are manufactured in the colon. Finally, a high fiber diet, including prebiotic soluble fiber, increases the integrity and health of the wall of the colon. The risk of cancer may be reduced. Colon Wall Integrity A high fiber diet changes the bacterial makeup of the colon toward a more favorable balance. For instance, it is known that those people with obesity, diabetes type 2 and inflammatory bowel disease have a predominance of bad bacteria in the colon. This, in turn, may render the bowel wall weak and allow bacteria and, indeed, even toxins to seep through. A high fiber diet with a modest reduction in animal and meat products may return the bacterial makeup to a more positive balance. This, in particular, has been seen when the soluble fiber prebiotics are added to the diet. Blood Sugar Soluble fiber such as in legumes (beans), oats and in prebiotic fibers slows the absorption of blood sugar and so helps regulate the sugar in the blood. Insoluble fiber on a regular basis is associated with reduced risk of type 2 diabetes. Weight Loss High fiber diets are more filling and give a sense of fullness sooner than an animal and meat based diet does. In addition, the soluble prebiotic fibers have been shown to turn off the hunger hormones produced in the wall of the gut and to increase the hormones that give a sense of fullness. Those hormones are made in the wall of the gut. New medical research has shown that the bacterial makeup in the colon in overweight people is abnormal to the extent that they manufacture and absorb almost twice the number of calories through the colon wall as do normals. Prebiotic fibers (below) will help change this hormonal balancein a favorable way. Bacteria and the Function of the Colon The colon finishes the digestive process. Hopefully, the waste products move through in a nice regular manner. Insoluble fibers help this process by retaining water and so producing a bulkier, softer stool, which is easy to pass. The additional role of the colon is to provide a home for an enormous number of micro-organisms, mostly bacteria. Recent research has shown that there are over 1,000 species of bacteria with a total bacterial count ten times the number of cells in the body. These bacteria play a major role in keeping the colon wall itself healthy. In addition, these good bacteria produce a very strong immune system for the body. They significantly increase calcium absorption and bone density. They provide other documented benefits. It is the soluble fibers in the diet that are so effective in stimulating the growth of good colon bacteria. How Much is Enough? The amount of fiber in food is measured in grams.? National nutritional authorities recommend the following amounts of dietary fiber daily. Under Age 50? Over Age 50 Men? 38 grams? 30 grams Women??? 25 grams? 21 grams For a week or so, it is best to tally the amount of fiber you are consuming.? Boxed and packaged foods will have the amount of fiber per serving on the nutrition label. Which Fibers and Which Foods are Best? As noted, healthy fiber is only found in plants. The three major categories are whole grains, fruits and vegetables. Whole Grains Wheat, oats, barley, wild or brown rice, amaranth, buckwheat, bulgur, corn, millet, quinoa, rye, sorghum, teff and triticals. By far, wheat, oats and wild or brown rice are most common. Always buy whole grain products. White bread, baked goods and rolls almost always are made from wheat flour. Wheat flour is white because most of the fiber, vitamins and other nutrients have been removed. Try not buy enriched grains. What this means is that simple white flour has had vitamins added to it by the drum sprayer. The word, enriched, implies a good and healthy product. On the contrary, enriched means that most of the fiber has been removed and a few vitamins added. Fruits Fruits come from trees such as apple and pear or from bushes or timothy. You should eat a wide variety of fruits, preferably with every meal. In many cases, the skin of a fruit such as apple will contain much of the insoluble fiber while the pulp contains most of the soluble fiber. To the extent possible, buy organic fruits as these will have little or no pesticides. Always wash fruit. Vegetables Eat a wide variety of vegetables. They should be a mainstay of lunch and dinners. Frozen vegetables retain as much nutrition and fiber as fresh vegetables. As with fruit, try to buy organic to reduce any residual pesticide ingestion. Wash fresh vegetables thoroughly. Cruciferous vegetables such as broccoli, [place] sprouts and cauliflower contain certain chemicals such as sulforaphane. This substance has very strong anti-cancer properties and should be eaten frequently. Legumes, Beans, Peas and Soybeans These vegetables have plenty of soluble fiber and should be part of a varied vegetable intake. Beans, in particular, contain a certain type of fiber that may lead to harmless gas or bloating. Nuts and Seeds These are rich sources of fiber and are a good substitute for sweets such as candies and baked sweet goods. While nuts and seeds are rich in fiber, they also contain vegetable fat and so can and do add calories. Read the Labels As noted, fresh and frozen foods are usually better.? They have good nutrition and few, if any, chemicals added to them.? When buying packaged foods and, in particular grains, look for three things: ? The first word on the label should be whole, such as whole wheat or whole grain. ? Check out the calories and the amount of fiber in a serving. ? How many and what other additives or chemicals are added.? Fewer is always better.? Do you know what each additive does?? Some are added not for the benefit of the fashion buyer but rather for manufacturers.? These could and do include sugar, artificial flavor, chemicals to prevent oxidation and spoilage, emulsifiers to blend the product.? You have to be a production posting clerk. Fiber Facts, Nuggets and Pearls ? For breakfast you can easily get the day started well by using a high fiber, whole grain cereal.? Check the labels.? Add fruit such as blueberries and bananas.? If you are an egg eater, use whole wheat or grain toast.? Adding wheat germ gives you a good fiber kick. ? Always use whole grain or wheat with rolls and sandwiches.? Does your fast food store not have them?? Perhaps you look elsewhere.? Eating an occasional black garner or veggie burger provides variety. ? Snacks should consist of fruit and/or nuts.? While nuts are loaded with fiber, they are an energy rich food, meaning they have a lot of calories in a small packet. ? Fruit juices should contain pulp.? Clear juices such as clear orange, pear or apple juice contain little fiber and have a lot of fructose.? Prune juice is usually high in fiber. ? Homemade soups ? adding fresh or frozen vegetables to a chicken or vegetable stock is a good way to start homemade soup. ? Salads ? adding cooked and then chilled vegetables provide great flavoring to almost any salad.? Remember, a emanuel salad has lots of cooked corn in it.? Small slices of apples or oranges and nuts such as chopped walnuts or sliced almonds always adds taste, variety and fiber to almost any salad. ? Fruit ? Try to eat fruit of some type with almost every meal. ? Rethink how you place the various foods on your dinner plate.? Reducing the portions of the meat or animal food portion to the side with equal or more portions of vegetables, legumes and fruits portion always allows for more fiber.? There was never anything magic about making the meat or animal food portion the main part of the dinner plate.? Eating from smaller plates can, over time, trick your mind and care home habit of using a dinner plate.? Again, there is nothing magic in an 11, 12, or 13 inch dinner plate. Fiber Supplements There are a variety of fiber supplements available on the food or pharmacy shelves. Psyllium This soluble plant fiber has been used in [place] for over 2,000 years. It is a soluble fiber with mucilage in it. This acts to retain a lot of water and also is fermented by colon bacteria. When 7 grams a day are used, it does lower cholesterol. Metamucil in various forms is psyllium. Methyl Cellulose All the cellulose products come from finely ground wood chips which are then treated in a variety of ways such as boiling in acids. Methyl cellulose is an insoluble fiber which does dissolve in water. It is also an emulsifier, meaning it blends oils and water. Citrucel is methyl cellulose (MC). MC may not be appropriate for Crohn?s disease or ulcerative colitis as several medical studies have shown that certain emulsifiers dissolve the mucous lining of the colon in animals prone to Crohn?s disease. This then allows bacteria to invade the underlying tissue. Fiber and Gas Everyone has intestinal gas and that is a good thing.? It means that bacteria, hopefully the good ones, are thriving.? The normal amount of flatus passed each day depends on sex and what is eaten.? The normal number of flatus is 10-20 times a day.? When the bacteria that make intestinal gases are growing, it also means that other good bacteria are using the same fibers to grow and produce multiple health benefits, including the production of healthy short-chain fatty acids.? These substances are produced quietly in the colon and produce many health-related outcomes. Soluble fiber should always be used in a gradual manner.? If too much is consumed at any one time, then excess, but harmless, intestinal gas can occur.? People with irritable bowel syndrome are particularly prone to bloating and mild cramping.? In this instance, soluble fiber in the diet or supplement should be used in small doses and increased gradually. Finally, prebiotic fibers tend to cause the production of short-chain fatty acids which acidify the colon.? This, in turn, reduces or stops the growth of bacteria that make the smelly hydrogen sulfide gases that produce noxious flatus.? People who consume many vegetables with prebiotics or take a prebiotic fiber supplement often have non-odoriferous flatus. Fiber and Irritable Bowel Syndrome Irritable bowel syndrome (IBS) is one of the most common disorders of the lower digestive tract.? The symptoms of IBS can be quite varied.? They can be a mix of several symptoms such as constipation, diarrhea, crampy abdominal discomfort, bloating and gas.? An attack of IBS can be triggered by emotional tension and anxiety, poor dietary habits and certain medications.? It is now known that infections in the intestine can lead to long-term IBS symptoms.? Increased amounts of fiber in the diet can help relieve the symptoms of irritable bowel syndrome by producing soft, bulky stools.? This helps to normalize the time it takes for the stool to pass through the colon.? Recent medical research with newer techniques has shown some surprising and dramatic findings for IBS patients.? Specifically, there is a very significant and abnormal shift of bacteria from those that provide health benefits to those bad bacteria that we really do not want in the gut.? The technical name for this bad group of bacteria is called Firmicutes.? Along with this abnormal bacterial collection, there is a smoldering low-grade inflammation in the gut wall that may contribute to symptoms.? The goal for IBS patients should be to gradually increase the soluble dietary fibers in the diet so as to promote the growth of good bacteria and so suppress the bad ones along with the associated inflammation. IBS patients need to be careful of the amount of soluble fiber they consume.? The reason for this is that, while the good colon bacteria thrive on these fibers and produce health benefits, other gas-forming bacteria may generate excessive but harmless gas and subsequent bloating.? Thus, soluble plant fibers or a dietary prebiotic supplement should be taken in small initial doses and then gradually increased to tolerance. Fiber and Colon Polyps/Cancer Colon cancer is a major health problem. This disease is most common in Western cultures. It is not seen very often in rural cultures where the diet is mostly plant based. Usually, colon cancer starts out as a colon polyp, a benign mushroom-shaped growth. In time it grows, and in some people it becomes cancerous. Colon cancer is usually always curable if polyps are removed when found or if surgery is performed at an early stage. It is now known that people can inherit the risk of developing colon cancer, but diet is important, too. As noted, there is a very low rate of colon cancer in residents of countries where grains are unprocessed and retain their fiber. It seems that in the Western world, cancer-containing agents (carcinogens) remain in contact with the colon wall for a longer time and in higher concentrations. So, a large bulky stool may act to dilute these carcinogens by moving them through the bowel more quickly. Less carcinogenic exposure to the colon may mean fewer colon polyps and less cancer. A very current review of the entire world?s literature on the effect of fiber on colon polyps and cancer prevention has shown rather clearly that for every 10 grams of fiber added to the diet, there is a 10% reduction in incidence of colon cancer. So the recommended 30 gram fiber diet would result in a 30% less chance of getting these tumors. There are also substances produced in the colon by the good bacteria that seem to retard certain pre-cancer factors from developing. They are called short-chain fatty acids (SCFA). See above for description of SCFAs. A high fiber diet increases these substances. So, the combination of dietary fiber and the production of short-chain fatty acids have a clear health benefit. Fiber and Diverticulosis Prolonged, vigorous contraction of the colon over a long period of time may result in diverticulosis.? This increased pressure causes small and, eventually, larger ballooning pockets to form.? These pockets by themselves cause no problem.? However, sometimes they become infected (diverticulitis) or even break open (perforate) causing infection or inflammation within the abdomen (peritonitis).? A high fiber diet increases the bulk in the stool and thereby reduces the pressure within the colon.? By so doing, the formation of pockets may be reduced or possibly even stopped. In the past, many physicians were fearful that seeds as in tomatoes, nuts or berries were harmful and could get inside these pockets and rattle around, causing damage. We now know that this has never been the case and that these foods contain lots of fiber and are actually beneficial for diverticulosis patients. Certain bulking agents such as psyllium are traditional types of bulk producing supplements.? Psyllium is a soluble fiber.? Combining it with insoluble fiber as in wheat bran or corn bran (no gluten) can enhance this bulking effect even more.? A product containing a prebiotic, psyllium and wheat bran is probably a very good combination for bowel regularity. Prebiotinhttps://www.[employer]/ Regularity/Diverticulosis is one such product. Starting a Fiber Supplement ?When consumed at recommended levels,?dietary fiberhttps://www.[facility]oclinic.org/healthy-lifestyle/ixnvquooj-irl-hidoycd-eating/in-depth/fiber/art-70104334?mc_id=us&utm_source=[employer]&utm_medium=l&utm_content=content&utm_campaign=[employer]&lisa=[facility]&placementsite=[place]&eoktg=500661?is widely recognized to have health benefits, including relief of?constipationhttps://www.[facility]oclinic.org/diseases-conditions/constipation/symptoms-causes/[facility]-32934049?mc_id=us&utm_source=newsnetwork&utm_medium=l&utm_content=content&utm_campaign=[employer]&lisa=national&placementsite=[place]&hgtuz=288922. Adult women 50 and younger should consume at least 25 grams of fiber a day. Women 51 and older should have at least 21 grams a day. Adult men need at least 38 grams of fiber a day if they are younger than 50 and at least 30 grams of fiber a day if they are 51 and older. Ninety percent of the [place] population consumes far below those recommendations, averaging only 15 grams of daily fiber. Fiber-rich foods include fruits, vegetables, whole grains and legumes. Many cereals, such as bran flakes, are good sources of fiber. Although fiber supplements can fill the daily fiber gap, they usually have only one type of fiber, rather than a variety of fibers and micronutrients, and they may not provide all the health benefits associated with fiber in food. Therefore, boost your fiber intake in your diet first by eating a wide variety of high-fiber foods. If you still can?t get enough fiber to meet the daily recommendation, consider using a supplement. Many fiber supplements can be used regularly care home. Fiber is classified as soluble or insoluble. Soluble fibers are more fermentable and may cause gas. Insoluble fibers move through the digestive system largely intact, and that can increase stool bulk. Most fiber supplements are exclusively soluble or insoluble fiber. For example, FiberCon (calcium polycarbophil) and Benefiber (wheat dextrin) are mainly soluble fiber. They tend to cause more bloating and flatulence. Citrucel (methylcellulose) is mainly insoluble fibers that are nonfermentable, so it?s less likely to contribute to bloating and gas. Psyllium husk (Metamucil and Konsyl) is rich in both soluble and insoluble fiber. Generally, fiber supplements with mainly insoluble fiber may be a better option for constipation. Before taking a fiber supplement, ask your health care provider or pharmacist to review your medications. Fiber supplements can decrease the absorption of certain medications, including drugs that treat thyroid disorders,?depressionhttps://www.[facility].org/diseases-conditions/depression/symptoms-causes/sy-75398052?mc_id=us&utm_source=newsnetwork&utm_medium=l&utm_content=content&utm_campaign=[facility]&lisa=national&placementsite=[place]&kpmij=287422,?d iabeteshttps://www.[facility].org/diseases-conditions/diabetes/symptoms-causes/sy-31171697?mc_id=us&utm_source=newsnetwork&utm_medium=l&utm_content=content&utm_campaign=[facility]&lisa=[facility]&placementsite=[place]&wfeis=934268,?high cholesterolhttps://www.[facility].org/diseases-conditions/gnmw-msove-arnzmogzquw/symptoms-causes/syc-51575413?mc_id=us&utm_source=newsnetwork&utm_medium=l&utm_content=content&utm_campaign=[facility]&lisa=[facility]&placementsite=[place]&luwob=604007, ?seizureshttps://www.[facility].org/diseases-conditions/seizure/symptoms-causes/syc-42757668?mc_id=us&utm_source=newsnetwork&utm_medium=l&utm_content=content&utm_campaign=[place]41&lisa=[facility]&placementsite=[place]&egago=599289?and various heart ailments. Even common medications such as aspirin, ibuprofen and penicillin can be affected by an increase in fiber. You may take your medications one hour before or two hours after eating fiber to minimize the interaction. Some fiber supplements may not be appropriate for people with certain medical conditions. For example, if you have celiac disease, you may need to stay away from fiber products derived from wheat. If you have diabetes, you may need to use a flavorless formula to avoid extra sugar. Consult your health care provider for guidance about the appropriate fiber supplement. Go slow as you begin fiber therapy. Fiber supplements may cause abdominal bloating, cramping and flatulence, especially if you start at a high dose. Begin with a low dose, gradually increasing the amount of fiber. Don?t add more than 50 grams of fiber in a supplement per day, as that may affect how your body absorbs nutrients. Your health care provider can help determine what?s right for you. Drinking plenty of water and exercising regularly can help ease constipation, too. If increasing fiber doesn?t improve your symptoms, see your health care provider. Constipation can be a symptom of various underlying medical disorders, such as pelvic floor muscle dysfunction, slow gastrointestinal motility, anatomical abnormalities or endocrine dysfunction that may require different treatment.? Stand Alone Forms: Anesthesia Discharge Inst., Amalia Mcleod (DSU) Activity:: see above Diet:: see above Discharge Orders Discharge Orders: Discharge Order (Routine); Ordered 04/28/23 Ordered By: Saritha Lloyd DS: Diagnosis Discharge Diagnosis (1) Encounter for screening colonoscopy: Status: Acute Asessment and Plan: The patient is seen and examined after their colonoscopy.? The patient has been able to pass gas.? They are not having abdominal pain.? They have been able to tolerate liquids and a snack.? They do not have any nausea or vomiting.? They are not having any chest pain or shortness of breath.??? They are not having any rectal bleeding. Their vital signs have been stable-see nursing notes. We discussed findings during their colonoscopy, and any biopsies that were done/polyps that were removed. The patient will be sent a letter with any biopsy results, and when to repeat the colonoscopy.-see discharge instructions. Patient was given explicit instructions to follow-up regarding colonoscopy-refer to discharge instructions.? We reviewed resumption of medications. Patient verbalized understanding and discharged in stable and satisfactory condition- See nursing notes. (2) Elevated hemoglobin A1c: Status: Acute (3) Elevated cholesterol: Status: Chronic (4) IFG (impaired fasting glucose): Status: Acute (5) Obesity: Status: Acute (6) GERD (gastroesophageal reflux disease): (7) Family history of colon cancer in mother: Status: Acute (8) Family history of colon cancer in father: Status: Acute (9) Diverticula of colon: Status: Acute
[2023-04-28 06:15] VITALS: BP 133/85; PULSE 96; RESP 18; TEMP 36.5; O2SAT 97
[2023-04-28] MEDS: Lactated Ringers 1,000 ML 80 ML IV (06:53)
--- NOTE | 2023-04-28 07:12 | ANES.PREOP_ITS ---
General Info Date of Service Date Performed: 04/28/23 Height: 5 ft 3 in Weight: 85.2 kg Body Mass Index (BMI): 33.3 Surgical Procedure: Operation Date: 04/28/23 07:35 Proposed Procedure Side Surgeon p Colonoscopy Saritha Lloyd, DO Actual Procedure Side Surgeon p Colonoscopy Saritha Lloyd, DO Pre-Op Diagnosis Post-Op Diagnosis CRC screening Meds Allergies and Home Medications Allergies Allergy/AdvReac Type Severity Reaction Status Date / Time Penicillins Allergy Unknown SUSPECTED Verified 04/28/23 06:27 ALLERGY PER [facility] CHART Home Medication Medication Instructions Recorded bupropion HCl 150 mg 24 hr tablet, 150 mg PO QAM #90 tabs 01/26/23 extended release (Wellbutrin XL) sertraline 100 mg tablet See Rx Instructions .Route 01/26/23 .COMPLEX #90 tabs B-complex with vitamin C 1 tab PO DAILY 03/30/23 cholecalciferol (vitamin D3) 50 50 mcg PO DAILY 03/30/23 mcg (2,000 unit) capsule omega-3 fatty acids 500 mg capsule 500 mg PO DAILY 03/30/23 Current Visit Medications: Current Medications Generic Name Dose Route Start Last Admin Trade Name Freq PRN Reason Stop Dose Admin Hyoscyamine Sulfate 0.125 mg 04/28/23 08:24 Hyoscyamine 0.125 Mg Sl/Oral/Chew SL 05/28/23 08:23 DIRECTED PRN Ringer's Solution 1,000 mls @ 80 mls/hr 04/28/23 06:00 04/28/23 06:53 IV 05/27/23 23:59 80 mls/hr INFUSION CHERI Administration IV Miscellaneous Supplies 1 each 04/28/23 06:00 Iv Access IV 05/27/23 23:59 DIRECTED CHERI Ondansetron HCl 4 mg 04/28/23 08:24 Ondansetron 4 Mg/2 Ml Vial IVP 05/28/23 08:23 Q4H PRN PRN Nausea / Vomiting Sodium Chloride 0 ml 04/28/23 06:00 Normal Saline Flush 10 Ml Syr IV 05/27/23 23:59 PRN PRN Sodium Chloride 0 ml 04/28/23 06:00 Normal Saline 10 Ml Vial IJ 05/27/23 23:59 DIRECTED PRN Sterile Water 0 ml 04/28/23 06:00 Water,Injection,Sterile 10 Ml Vial IJ 05/27/23 23:59 DIRECTED PRN [facility] Active Problems Active Problems: Problem Status Onset Code Encounter for screening colonoscopy Z12.11 Elevated hemoglobin A1c R73.09 Elevated cholesterol E78.00 Screening for cholesterol level Z13.220 IFG (impaired fasting glucose) R73.01 Anxiety F41.9 Elevated alkaline phosphatase level R74.8 Knee pain, right M25.561 Obesity 08/21/12 E66.9 Medical History Medical History Anxiety GERD (gastroesophageal reflux disease) Heartburn SARS-CoV-2 positive (~2020) Surgical History Surgical History Colonoscopy - [facility] (01/04/16) Dr Souza, repeat 7 yrs Tobacco Smoking/Tobacco Use Status: Never Alcohol Alcohol Intake: current Alcohol intake frequency: a few times a week Alcohol type: beer Substance Use Substance use: Never Substance use type: does not use Vital Signs and Lab Results Vital Signs Most Recent Vital Signs in EMR: Most Recent Vital Signs Temp Pulse Resp BP Pulse Ox 36.5 C 96 H 18 133/85 97 04/28/23 06:15 04/28/23 06:15 04/28/23 06:15 04/28/23 06:15 04/28/23 06:15 Lab Results Blood Type / Crossmatch: No Data to Display Complete Blood Count: No Data to Display Complete Metabolic Panel: No Data to Display Liver Function Panel: No Data to Display Coagulation Panel: No Data to Display Cardiac Panel: No Data to Display Arterial Blood Gas: No Data to Display Venous Blood Gas: No Data to Display Pancreas Panel: No Data to Display Thyroid Panel: No Data to Display Infectious Disease: 2 No Data to Display Blood Cultures: No Data to Display Toxicology Panel: No Data to Display Anesthesia Assessment and Plan Anesthesia History Personal History: No History of Anesthesia Complications Family History: No Family History of Anesthesia Complications Exercise Tolerance Exercise Tolerance: Metabolic Equivalents>4 Pertinent Negatives Pertinent Negatives: No Symptoms of GERD, No Major Cardiovascular Symptoms or Complaints, No Major Pulmonary Symptoms or Complaints and No History of CVA/TIA Cardiac & Pulmonary Exam Cardiac Exam: Normal S1/S2 Heart Sounds Pulmonary Exam: Clear Bilateral Breath Sounds Implantable Cardiac Device Does patient have a Pacemaker or an ICD?: No Airway Exam Known Difficult Airway: No Mallampati Class: 2 Mouth Opening: Normal (> 3cm) Thyromental Distance: Greater than 3 cm Neck Range of Motion: Full ROM Neck Circumference: Normal Teeth Condition: Normal Dentition ASA Classification ASA Score: ASA 2 Emergency Case?: No NPO Status NPO Status: NPO Clears >2 hours, Solids >8 hours Anesthesia Plan Resuscitation Status: Full Code Anesthesia Technique: General Anesthesia Airway Planned: Natural Airway Monitors Used: Standard Monitors Preoperative Comments:: Laryngospasm with last colonoscopy, resolved with PPV.
[2023-04-28 07:14] VITALS: BMI 33.3
[2023-04-28 08:05] VITALS: BP 122/75; PULSE 76; RESP 16; TEMP 36.6; O2SAT 95
[2023-04-28 08:35] VITALS: BP 127/79; PULSE 70; RESP 18; TEMP 37; O2SAT 98
--- NOTE | 2023-04-28 08:35 | W.ANESPOSTOP ---
Postoperative Evaluation Date, Time and Location Date Performed: 04/28/23 Time Performed: 08:17 Patient Location: Day Surgery Unit Vital Signs Most Recent Imported Vital Signs: Most Recent Vital Signs Temp Pulse Resp BP Pulse Ox 36.6 C 76 16 122/75 95 04/28/23 08:05 04/28/23 08:05 04/28/23 08:05 04/28/23 08:05 04/28/23 08:05 Pain Score Most Recent Pain Score: Most Recent Pain Score Pain Level 0 04/28/23 08:05 Assessment Mental Status: Awake (Alert & Oriented to Patient Baseline) Airway and Respiratory Function: Patent airway with normal (patient baseline) respiratory exam Cardiovascular Function: Hemodynamically Stable Hydration Status: Adequately Hydrated Nausea & Vomiting: No Nausea or Vomiting Pain: Pain is tolerable per patient (abdominal cramping) Peripheral Nerve Block: Patient did not receive a nerve block
== END 2023-04-28 09:05 | disposition home or self-care (01) ==
LOC: SUR 06:12
PROVIDERS: PCP Nurse Practitioner; Visit Provider Surgery
PROC: 0DJD8ZZ Inspection of Lower Intestinal Tract, Via Natural or Artificial Opening Endoscopic (ICD-10-PCS; CPT 45378; principal; 2023-04-28 07:30)
DX: Z12.11 Encounter for screening for malignant neoplasm of colon (principal); Z80.0 Family history of malignant neoplasm of digestive organs; K57.30 Diverticulosis of large intestine without perforation or abscess without bleeding; K21.9 Gastro-esophageal reflux disease without esophagitis
CPT/HCPCS: G0105; J1885; J2405

== ENCOUNTER → 2023-05-10 01:52 | Outpatient (CLI) | payer MEDICARE, SELFPAY ==
--- NOTE | 2023-05-10 07:00 | DI.RAD_ITS ---
Exam(s) RF BARIUM ENEMA EXAM: RF BARIUM ENEMA CLINICAL HISTORY: incomplete colonscopy,family h/o colon ca,diveticula of colon,z80.0,k57.30 COMPARISON: No exams were available for comparison TECHNIQUE: 2D and realtime digital imaging was performed. CONTRAST MATERIAL: Air-contrast technique FINDINGS: There was unobstructed flow of barium through the colon to the level of the cecum and the normal appe aring appendix was also outlined. There was no reflux into the terminal ileum. There are multiple diverticuli in the sigmoid, appearing uncomplicated. There are also a few uncompl icated diverticuli evident in the splenic flexure region and distal transverse colon. Small divertic gamaliel are also seen in the region of the a hepatic flexure of the colon. No obvious polyps nor annular constricting lesions. Cecum appears unremarkable. IMPRESSION: 1. Diverticulosis as described above without extravasation to suggest acute diverticulitis. The paulette ent was not tender during this examination today. 2. No obvious polyps and no annular constricting lesions evident. RADIATION DOSE DELIVERED: santos Brooks=173 mGy
== END ==
PROVIDERS: PCP Nurse Practitioner; Visit Provider Surgery
DX: E66.9 Obesity, unspecified (principal); K57.30 Diverticulosis of large intestine without perforation or abscess without bleeding; R06.83 Snoring; R73.01 Impaired fasting glucose; Z13.220 Encounter for screening for lipoid disorders; Z80.0 Family history of malignant neoplasm of digestive organs
CPT/HCPCS: 74270

== ENCOUNTER 2024-06-07 00:37 | Outpatient (CLI) | payer MEDICARE, SELFPAY ==
--- OUTSIDE RECORDS SUMMARY | 2024-06-07 00:43 | XMS_ITS | Encounter Summary ---
Author Organization [facility] Address [address] [place] [address] Care Team Providers Care Associate Professor Of Biology Name Role Phone Unavailable Primary Care Provider Unavailabl e Encounter Details Date Type Department Care Team (Late st Contact Info) Description 04/14/2005 Results Only [facility] [address] [place] [address] Zonia Christie MD [address] [place] [address] [place] [address] Social History Tobacco Use Types Packs/Day Years Used Date Smoking Tobacco: Never Assessed Comments Unknown Sex and Gender Information Value Date Recorded Sex Assigned at Not on file Legal Sex Female 18:24 EST Gender Identity Not on file Sexual Orientation Not on file documented as of this encounter Plan of Treatment Not on file documented as of this encounter Procedures Procedure Name Priority Date/Time Associated Diagnosis Comments CYTOPATHOLOGY Routine 04/14/2005 0:00 EDT documented in this encounter Results * CYTOPATHOLOGY (04/14/2005 0:00 EDT) Pathology Report: CYTOPATHOLOGY REPORT Reports generated via electronic interface contain original data; however they are lacking the format of the original report. Caution should be taken when reading/interpreti ng unformatted reports. Name: ? DOMINGO ROOT ? Accession #: ? [id number] : ? 1955 (Age: 49) ??F ?Collect Date: ? 04/14/2005 Location: ? [facility] ? Receive Date: ? 04/18/2005 Provider: ?ZONIA CHRISTIE MD Copy to: ? Specimen/Source: ?ThinPrep Pap Test, Cervix/Endocervix, processed on [employer] ThinPrep Imaging System, with manual evaluation Last Menstrual Period: ? 04/08/05 ? SPECIMEN ADEQUACY ? Satisfactory for Evaluation - transformation zone component present GENERAL CATEGORIZATION ? Other, see interpretation INTERPRETATION ? Endometrial cells present in a woman equal to or greater than age 40. Negative for Intraepithelial Lesion or Malignancy. Reactive cellular changes associated with inflammation present (includes repair). EDUCATIONAL NOTES/RECOMMENDATI ONS ? Benign appearing endometrial cells on Pap tests are usually a normal finding in women with regular menstrual cycles, especially if the Pap test was collected during the first half of the menstrual cycle. There is data showing that endometrial cells on Pap tests may be associated with endometrial/uterin e abnormalities in post menopausal women or in perimenopausal women with abnormal bleeding. There is limited data on the significance of benign endometrial cells in post menopausal women on HRT. ??Clinical correlation is recommended. Note: ??The Pap test is not an accurate test for the screening of endometrial lesions and should not be used as a follow up in patients with clinical suspicion of endometrial pathology. ? Document reviewed and electronically signed by: ? SHAKIR FELTON MD ? Report Date: ??04/27/2005 16:33 End of Report RIVKA CEJA 04/14/2005 04/18/2005 us Zonia Christie MD PATHOLOGY ORDERABLES Final Resu lt RIVKA CEJA [address] [place] [address] documented in this encounter Visit Diagnoses Not on filedocumented in this encounter
--- OUTSIDE RECORDS SUMMARY | 2024-06-07 00:43 | XMS_ITS | Clinical Summary ---
Author Organization [facility] [place] [address] Care Team Providers Care Executive Legal Secretary Name Role Phone Nicole Reed MD Primary Care Provider [phone] Allergies Active Allergy Reactions Criticality Noted Date Comments Cephalexin 06/03/2016 Penicillins 06/03/2016 Medications Medication Sig Dispensed Refills Start Date End Date Status buPROPion (WELLBUTRIN XL) 300 mg Tablet Sustained Release 24 hr 0 04/28/2016 Active ranitidine (ZANTAC) 150 mg Tablet take 1 tablet by mouth twice a day if needed 0 04/29/2016 Active sertraline (ZOLOFT) 25 mg Tablet 0 04/05/2016 Active Active Problems Problem Noted Date Diagnosed Date Seborrheic keratosis 06/03/2016 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 Intertrigo 06/03/2016 Social History Tobacco Use Types Packs/Day Years Used Date Smoking Tobacco: Never Sex and Gender Information Value Date Recorded Sex Assigned at Not on file Gender Identity Not on file Sexual Orientation Not on file Plan of Treatment Health Maintenance Due Date Last Done Comments CT Colonography 1955 Colonoscopy 1955 Colorectal Cancer Screening 1955 FIT DNA 1955 FIT 1955 Sigmoidoscopy (10 year) with FIT yearly 1955 Sigmoidoscopy 1955 Hepatitis C Screening 1972 Tetanus/Diphtheria/Pertussis Vaccines (1 - Tdap) 11/18 Breast Cancer Share Decision Needed 1994 Breast Cancer screening 1994 Zoster vaccine (1 of 2) 2004 Advance Directive 2009 Bone Density Scan 11/19/2019 Pneumoccocal Vaccine: 65+ (1 of 1 - PCV) 11/19/2019 Covid-19 Vaccine (1 - season) 2024 Influenza (Flu) vaccine (1 o f 1 - Influenza standard series) 02/25/2024 Care Teams Executive Legal Secretary Relationship Specialty Start Date End Date Nicole Reed MD [address] [place] [address] PCP - General General Internal Medicine 06/03/16
--- OUTSIDE RECORDS SUMMARY | 2024-06-07 00:43 | XMS_ITS | Encounter Summary ---
Author Organization [facility] Address [address] [place] [address] Care Team Providers Care Pattern Changer And Repairer Name Role Phone Unavailable Primary Care Provider Unavailabl e Encounter Details Date Type Department Care Team (Late st Contact Info) Description 04/15/2008 Before PRISM Converted Visit ([facility]) [facility] [address] [place] [address] Chey Rogers, WILLI Social History Tobacco Use Types Packs/Day Years [...] Priority Date/Time Associated Diagnosis Comments CYTOPATHOLOGY Routine 04/15/2008 0:00 EDT documented in this encounter Results * CYTOPATHOLOGY (04/15/2008 0:00 EDT) Pathology Report: CYTOPATHOLOGY REPORT ? Reports generated via electronic interface contain original data; ? however they are lacking the format of the original report. ? Caution should be taken when reading/interpreti ng unformatted reports. ? Name: ? DOMINGO ROOT ? Accession #: ? [id number] ? : ? 1955 (Age: 52) ??F ?Collect Date: ? 04/15/2008 ? Location: ? [facility] ? Receive Date: ? 04/16/2008 ? Provider: ?CHEY M JOSEFA REFRIGERATOR CABINETMAKER ? Copy to: ? Specimen/Source: ?Pap Test, Cervix/Endocervix, ThinPrep Imaging System ? with manual evaluation ? Last Menstrual Period: ? 2 years ago ? SPECIMEN ADEQUACY ? Satisfactory for Evaluation ? - assessment of transformation zone component not applicable ( e.g. atrophy, ? vaginal sample, hysterectomy) ? GENERAL CATEGORIZATION ? Negative for Intraepithelial Lesion or Malignancy ? Document reviewed and electronically signed by: ? Yannick Obando, CT(ASCP) ? Report Date: ??04/18/2008 09:38 ? End of Report ? [facility] 04/15/2008 04/16/2008 us Chey Rogers NP PATHOLOGY ORDERABLES Final Re sult [facility] [address] [place] [address] documented in this encounter Visit Diagnoses Not on filedocumented in this encounter
--- OUTSIDE RECORDS SUMMARY | 2024-06-07 00:43 | XMS_ITS | Encounter Summary ---
Author Organization [facility] Address [address] [place] [address] Care Team Providers Care Histology Tech Name Role Phone Unavailable Primary Care Provider Unavailabl e Encounter Details Date Type Department Care Team (Late st Contact Info) Description 04/21/2006 Results Only [facility] conversion [address] [place] [address] Zonia Christie MD [address] [place] [address] [place] [address] Social History Tobacco Use Types Packs/Day Years [...] Priority Date/Time Associated Diagnosis Comments CYTOPATHOLOGY Routine 04/21/2006 0:00 EDT documented in this encounter Results * CYTOPATHOLOGY (04/21/2006 0:00 EDT) Pathology Report: CYTOPATHOLOGY REPORT Reports generated via electronic interface contain original data; however they are lacking the format of the original report. Caution should be taken when reading/interpreti ng unformatted reports. Name: ? DOMINGO ROOT ? Accession #: ? [id number] : ? 1955 (Age: 50) ??F ?Collect Date: ? 04/21/2006 Location: ? [facility] ? Receive Date: ? 04/24/2006 Provider: ?ZONIA CHRISTIE MD Copy to: ? Specimen/Source: ?ThinPrep Pap Test, Cervix/Endocervix, processed on ngmoco ThinPrep Imaging System, with manual evaluation Last Menstrual Period: ? 02/24/06 Other: ? HPVA - HPV testing requested if ASC-US on the current ThinPrep Pap test. ? SPECIMEN ADEQUACY ? Satisfactory for Evaluation - transformation zone component present GENERAL CATEGORIZATION ? Negative for Intraepithelial Lesion or Malignancy ? Document reviewed and electronically signed by: ? Naomie Garcia, SCT(ASCP) ? Report Date: ??04/26/2006 11:41 End of Report [facility] 04/21/2006 04/24/2006 us Zonia Christie MD PATHOLOGY ORDERABLES Final Resu lt Performing Organization Address City/State/[facility] Co de Phone Number [facility] [address] [place] [address] documented in this encounter Visit Diagnoses Not on filedocumented in this encounter
--- OUTSIDE RECORDS SUMMARY | 2024-06-07 00:43 | XMS_ITS | Encounter Summary ---
Author Organization [facility] Address [address] [place] [address] Care Team Providers Care Business Area Manager Name Role Phone Unavailable Primary Care Provider Unavailabl e Encounter Details Date Type Department Care Team (Late st Contact Info) Description 03/01/2006 Results Only [facility] conversion [address] [place] [address] Zonia Christie MD [address] [place] [address] [place] [address] Social History Tobacco Use Types Packs/Day Years [...] Procedure Name Priority Date/Time Associated Diagnosis Comments SURGICAL PATHOLOGY Routine 03/01/2006 0:00 EDT documented in this encounter Results * SURGICAL PATHOLOGY (03/01/2006 0:00 EDT) Pathology Report: SURGICAL PATHOLOGY REPORT Reports generated via electronic interface contain original data; however they are lacking the format of the original report. Caution should be taken when reading/interpreti ng unformatted reports. Name: ? DOMINGO ROOT ? Accession #: ? [id number] ? : ? 1955 (Age: 50) ??F ? Collect Date: ? 03/01/2006 ? Location: ? [facility] ? Receive Date: ? 03/01/2006 ? Provider: ZONIA CHRISTIE MD Copy to: AGUSTINA GILBERT MD ? Final Pathologic Diagnosis: ? Endometrium, biopsy: 1. ?Weakly proliferative endometrium. 2. ?Fragments of endometrial polyps. 3. ?Tubal metaplasia. Document reviewed and electronically signed by: Tee Sosa MD Report ??Date: 03/06/2006 17:20 By the signature above, the attending physician certifies that he/she has personally conducted a gross and/or microscopic examination of the described specimens and rendered or confirmed the above diagnosis. Specimen(s) Received: ? Endometrial bx Clinical History: ? Menometrorrhagia; LMP: January; clinical diagnosis code: ??626.2 Gross Description: ? Received in formalin labelled Root and endometrial biopsy are multiple mucinous bustillo to dark red tissue fragments measuring 3.5 x 2.0 x 0.5 cm in aggregate. ??The specimen is entirely submitted as (A1) and (A2). ??(Dr. Mcclure-)/[facility] End of Report [facility] 03/01/2006 03/01/2006 15: 39 EDT us Zonia Christie MD PATHOLOGY ORDERABLES Final Resu lt [facility] [address] [place] [address] documented in this encounter Visit Diagnoses Not on filedocumented in this encounter
--- OUTSIDE RECORDS SUMMARY | 2024-06-07 00:43 | XMS_ITS | Encounter Summary ---
Author Organization [facility] Address [address] [place] [address] Care Team Providers Care Scale And Skip Car Operator Name Role Phone Unavailable Primary Care Provider Unavailabl e Encounter Details Date Type Department Care Team (Late st Contact Info) Description 06/15/2001 Results Only [facility] conversion [address] [place] [address] Krystal Freeman, [facility] [address] [place] [address] [place] [address] Social History Tobacco Use Types Packs/Day Years [...] Priority Date/Time Associated Diagnosis Comments CYTOPATHOLOGY Routine 06/15/2001 0:00 EST documented in this encounter Results * CYTOPATHOLOGY (06/15/2001 0:00 EST) Pathology Report: CYTOPATHOLOGY REPORT Reports generated via electronic interface contain original data; however they are lacking the format of the original report. Caution should be taken when reading/interpreti ng unformatted reports. Name: ? DOMINGO ROOT ? Accession #: ? [id number] : ? 1955 (Age: 45) ??F ?Collect Date: ? 06/15/2001 Location: ? [facility] ? Receive Date: ? 06/21/2001 Provider: ?KRYSTAL FREEMAN MASTIC WORKER Copy to: ? Specimen/Source: ?ThinPrep Pap Test, Cervix/Endocervix Last Menstrual Period: ? 05/06/01 ? SPECIMEN ADEQUACY ? Unsatisfactory for Evaluation, - insufficient numbers of squamous epithelial cells (less than 10% of expected cellularity) GENERAL CATEGORIZATION ? Specimen processed and examined, but unsatisfactory for evaluation of epithelial abnormality. Recommend repeat Pap test or further follow up, as clincially indicated. ? Document reviewed and electronically signed by: ? Naomie Garcia, SCT(ASCP) ? Report Date: ??06/28/2001 16:00 End of Report [facility] 06/15/2001 06/21/2001 us Krystal Freeman MASTIC WORKER PATHOLOGY ORDERABLES Final R esult [facility] [address] [place] [address] documented in this encounter Visit Diagnoses Not on filedocumented in this encounter
--- OUTSIDE RECORDS SUMMARY | 2024-06-07 00:43 | XMS_ITS | Encounter Summary ---
Author Organization [facility] Address [address] [place] [address] Care Team Providers Care Supervisor Roller Printing Name Role Phone Unavailable Primary Care Provider Unavailabl e Encounter Details Date Type Department Care Team (Late st Contact Info) Description 11/16/1999 Results Only [facility] conversion [address] [place] [address] Krystal Freeman, [facility] [address] [place] [address] [place] [address] Social History Tobacco Use Types [...] Priority Date/Time Associated Diagnosis Comments CYTOPATHOLOGY Routine 11/16/1999 0:00 EDT documented in this encounter Results * CYTOPATHOLOGY (11/16/1999 0:00 EDT) Pathology Report: CYTOPATHOLOGY REPORT Reports generated via electronic interface contain original data; however they are lacking the format of the original report. Caution should be taken when reading/interpreti ng unformatted reports. Name: ? DOMINGO ROOT ? Accession #: ? [id number] : ? 1955 (Age: 43) ??F ?Collect Date: ? 11/16/1999 Location: ? [facility] ? Receive Date: ? 1999 Provider: ?KRYSTAL FREEMAN MANAGER REGISTRATION Copy to: ? Specimen/Source: ?ThinPrep Pap Test, Cervix/Endocervix Last Menstrual Period: ? 10/29/99 Other: ? Additional clinical information: Last pap 5 yrs ago ? SPECIMEN ADEQUACY ? Satisfactory for evaluation. GENERAL CATEGORIZATION ? Within Normal Limits ? Document reviewed and electronically signed by: ? Sandy Andres, MARIA ALEJANDRA(ASCP) ? Report Date: ??11/19/1999 12:47 End of Report [facility] 11/16/1999 1999 us Krystal Freeman MANAGER REGISTRATION PATHOLOGY ORDERABLES Final R esult [facility] [address] [place] [address] documented in this encounter Visit Diagnoses Not on filedocumented in this encounter
--- OUTSIDE RECORDS SUMMARY | 2024-06-07 00:43 | XMS_ITS | Encounter Summary ---
Author Organization [facility] Address [address] [place] [address] Care Team Providers Care Airport Operations Officer Name Role Phone Jesus Alberto Wilson MD Primary Care Provider Unav ailable Encounter Details Date Type Department Care Team (Late st Contact Info) Description 06/10/2022 Lab Requisition [facility] Pathology & Laboratory Medicine - [facility] [address] [place], [place] [address] Outr Resulting Lab, Provider Social History Tobacco Use Types Packs/Day Years [...] Procedure Name Priority Date/Time Associated Diagnosis Comments ZZHN INFLUENZA A AND B, RSV PCR Routine 06/09/2022 10:15 EST documented in this encounter Results * (ABNORMAL) INFLUENZA A AND B,RSV PCR (06/09/2022 10:15 EST) FLU A RNA Result (FLAR[facility]) Positive(A) Negative 06/11/2022 14:[address] [facility] FLU B RNA Result (FLBRES) Negative Negative 06/11/2022 14:[address] [facility] RSV RNA Result (RSVRES) Negative Negative 06/11/2022 14:[address] [facility] SINDY ENTIRE NASOPHARYNX / Unknown 06/09/2022 10:15 EST 06/10/2022 19:56 EST us Provider Outr Resulting Lab MICROBIOLOGY - GENER AL ORDERABLES Final Result [facility] [address] [place] [address] documented in this encounter Visit Diagnoses Not on filedocumented in this encounter Additional Health Concerns Infection Onset Date Last Indicated Resolved Time Influenza 06/09/2022 06/09/2022 06/19/2022 22:1 5 EST documented as of this encounter Care Teams Airport Operations Officer Relationship Specialty Start Date End Date Jesus Alberto Wilson MD PCP - General 05/05/15 documented as of this encounter
--- OUTSIDE RECORDS SUMMARY | 2024-06-07 00:43 | XMS_ITS | Encounter Summary ---
Author Organization [facility] Address [address] [place] [address] Care Team Providers Care Integrated Specialist Name Role Phone Unavailable Primary Care Provider Unavailabl e Encounter Details Date Type Department Care Team (Late st Contact Info) Description 04/20/2009 Orders Only [facility] Laboratory Services - [facility] [address] [place] [phone] Chey Rogers, CLERICAL CLERK Social History Tobacco Use Types Packs/Day Years [...] Procedure Name Priority Date/Time Associated Diagnosis Comments HPV DETECTION, HIGH RISK TYPES Routine 04/20/2009 15:39 EDT CYTOPATHOLOGY Routine 04/20/2009 0:00 EDT documented in this encounter Results * HUMAN PAPILLOMA VIRUS DNA TEST (04/20/2009 15:39 EDT) Specimen Description Cervix, ThinPrep vial [facility] Result Negative for HPV types 16, 18, 31, 33, 35, 39, 45, 51, 52, 56, 58, 59, and 68. [facility] Report Status Final 04/30/2009 [facility] 04/20/2009 15:3 9 EDT 04/28/2009 15:39 EST us Chey Rogers NP MICROBIOLOGY - GENERAL ORDERA BLES Final Result [facility] [address] [place] [address] * CYTOPATHOLOGY (04/20/2009 0:00 EDT) Pathology Report: CYTOPATHOLOGY REPORT ? Reports generated via electronic interface contain original data; ? however they are lacking the format of the original report. ? Caution should be taken when reading/interpreti ng unformatted reports. ? Name: ? DOMINGO BARRETT ? Accession #: ? [id number] ? : ? 1955 (Age: 53) ??F ?Collect Date: ? 04/20/2009 ? Location: ? [facility] ? Receive Date: ? 04/20/2009 ? Provider: ?CHEY M JOSEFA CLERICAL CLERK ? Copy to: ? Specimen/Source: ?Pap Test, Cervix/Endocervix, ThinPrep Imaging System ? with manual evaluation ? Last Menstrual Period: ? 2006 ? Other: ? HPVDX - HPV testing requested regardless of diagnosis on current ThinPrep Pap ?? test. ? SPECIMEN ADEQUACY ? Satisfactory for Evaluation ? - transformation zone component present ? GENERAL CATEGORIZATION ? Negative for Intraepithelial Lesion or Malignancy ? Document reviewed and electronically signed by: ? Lynan Martir, CT(ASCP) ? Report Date: ??04/28/2009 09:40 ? End of Report ? [facility] 04/20/2009 04/20/2009 us Chey Rogers CLERICAL CLERK PATHOLOGY ORDERABLES Final Re sult [facility] [address] [place] [address] documented in this encounter Visit Diagnoses Not on filedocumented in this encounter
--- OUTSIDE RECORDS SUMMARY | 2024-06-07 00:43 | XMS_ITS | Encounter Summary ---
Author Organization [facility] Address [address] [place] [address] Care Team Providers Care Shorthand Teacher Name Role Phone Unavailable Primary Care Provider Unavailabl e Encounter Details Date Type Department Care Team (Late st Contact Info) Description 04/25/2008 Before PRISM Converted Visit ([facility]) [facility] - [facility] conversion [address] [place] [address] Ton Marquis MD [address] [place] [address] Social History Tobacco Use Types [...] Date/Time Associated Diagnosis Comments SURGICAL PATHOLOGY Routine 04/25/2008 0:00 EDT documented in this encounter Results * SURGICAL PATHOLOGY (04/25/2008 0:00 EDT) Pathology Report: SURGICAL PATHOLOGY REPORT ? Reports generated via electronic interface contain original data; ? however they are lacking the format of the original report. ? Caution should be taken when reading/interpreting unformatted reports. ? Name: ? DOMINGO ROOT ? Accession #: ? [id number] ? : ? 1955 (Age: 52) ??F ?Collect Date: ? 04/25/2008 ? Location: ? [facility] ? Receive Date: ? 04/25/2008 ? Provider: TON MARQUIS MD ? Copy to: DEVIKA CAI MD ? Addendum ? Date Ordered: ? 04/30/2008 ? Status: Signed Out ? Date Complete: ? 04/30/2008 ? By: Angela Medrano ? Date Reported: ? 05/01/2008 ? Addendum Diagnosis ? A. ?Soft tissue, right ring finger, excision: ? 1. ?PALMAR FIBROMATOSIS. See comment. ? B. ?Soft tissue, right medial phalanx, radial aspect, biopsy: ? 1. ?Intravascular hemangioma. ? C. ?Soft tissue, left ulnar aspect, proximal interphalangeal joint, ? excision: ? 1. ?? Benign fibrous tissue. ? Addendum Comment ? Upon review at the conference, the diagnosis for part A has been changed as above. This change has been communicated to Dr. Ton Marquis. ? Document reviewed and electronically signed by: ? LAKEISHA S NANCY MD ? Report date: 05/01/2008 ? By the signature above, the attending physician certifies that he/she has ? personally conducted a gross and/or microscopic examination of the described ? specimens and rendered or confirmed the above diagnosis. ? Final Report ? Final Pathologic Diagnosis: ? A. ?Soft tissue, right ring finger, excision: ? 1. ?Localized, giant cell tumor with tendon sheath. ? B. ?Soft tissue, right medial phalanx, radial aspect, biopsy: ? 1. ?Intravascular hemangioma. ? C. ?Soft tissue, left ulnar aspect, proximal interphalangeal joint, ? excision: ? 1. ?Benign fibrous tissue. ? Comment: ? This case was reviewed at the intradepartmental consultation conference. ?? (Dr. Francisco)/mpl ? Gross Description: ? Received in formalin labelled Root and extensor tendon mass right ? little finger. ??The specimen consists of a 0.7 x 0.6 x 0.3 cm bustillo-white firm ?? irregular soft tissue without orientation. ??The specimen is inked, trisected, ?? and entirely submitted in (A). ? Received in formalin labelled Root and radial aspect right middle phalanx glomangioma. ??The specimen consists of a 0.7 x 0.6 x 0.3 cm gonzalez-bustillo, irregular soft tissue with a small amount of adherent yellow-bustillo, lobulated fat. ??The ? specimen is inked, trisected and entirely submitted in (B). ? Received in formalin labelled Root and mass left ulnar aspect PIP joint ?? volar plate. ??The specimen consists of two bustillo-white, firm irregular soft ? tissues, 0.2 x 0.2 x 0.1 cm and 0.2 x 0.2 x 0.2 cm. ??Each is inked and submitted intact in (C). ??(Kalpesh Thompson)/mms ? Clinical History: ? B. ??? Glomangioma; C. ??? Fibrous capsular thickening; ? Giant cell tumor Rt hand; spontaneous appearance of masses R hand ??soft tissue. ??3 distinctly ? different masses. ? Specimens Received: ? A. ?Extensor tendon mass Rt ring finger (#1) ? B. ? Radial aspect Rt medial phalanx (#2) ? C. ? Mass Lt ulnar aspect PIP joint at volar plate (#3) ? Document reviewed and electronically signed by: ? LAKEISHA S NANCY MD ? Report ??Date: 04/29/2008 17:02 ? By the signature above, the attending physician certifies that he/she has ? personally conducted a gross and/or microscopic examination of the described ? specimens and rendered or confirmed the above diagnosis. ? End of Report ? [facility] 04/25/2008 04/25/2008 9:1 2 EDT us Ton Marquis MD PATHOLOGY ORDERABLES Final Result [facility] [address] [place] [address] documented in this encounter Visit Diagnoses Not on filedocumented in this encounter
--- OUTSIDE RECORDS SUMMARY | 2024-06-07 00:43 | XMS_ITS | Encounter Summary ---
Author Organization [facility] Address [address] [place] [address] Care Team Providers Care Consumer Recruiter Name Role Phone Jesus Alberto Wilson MD Primary Care Provider Unav ailable Encounter Details Date Type Department Care Team (Late st Contact Info) Description 08/25/2020 Lab Requisition [facility] Pathology & Laboratory Medicine - [address] [id number] Outr Resulting Lab, Provider Social History Tobacco [...] Procedure Name Priority Date/Time Associated Diagnosis Comments ZZCOVID-19 TEST [facility] PCR Today 08/25/2020 9:59 EST COVID-19 TESTING Routine 08/25/2020 9:59 EST documented in this encounter Results * COVID-19 TEST [facility] PCR (08/25/2020 9:59 EST) Swab ENTIRE NASOPHARYNX / Unknown 08/25/2020 9:59 EST 08/25/2020 15:44 EST us Provider Outr Resulting Lab MICROBIOLOGY - GENER AL ORDERABLES Final Result [facility] [address] [place] [address] * (ABNORMAL) COVID-19 TESTING (08/25/2020 9:59 EST) COVID-19 rt-PCR Result Positive( AA) Negative 08/26/2020 12:18 EST [facility] Comment: This test has not been FDA cleared or approved. This test has been authorized by FDA under an EUA for use by authorized laboratories. This test has been authorized only for detection of nucleic acid from 2019-nCoV, not for any other viruses or pathogens. This test is only authorized for the duration of the declaration that circumstances exist justifying the authorization of emergency use of in vitro diagnostic tests for detection and/or diagnosis of 2019-nCoV under section 564(b)(1) of Act, 21 U.S.C ?? 360bbb-3(b) (1), unless the authorization is terminated or revoked sooner. This test was developed and its performance characteristics determined by [facility]. It has not been cleared or approved by the US Food and Drug Administration. FDA does not require this test to go through premarket FDA review. This test is used for clinical purposes. It should not be regarded as investigational or for research. This laboratory is certified under the Clinical Laboratory Improvement Amendments (CLIA) as qualified to perform high complexity clinical laboratory testing. This test is based on the [facility] COVID-19 Emergency Use Authorization (EUA) assay, with minor modification as defined by the FDA Performed on the [employer] 7 Flex RT-PCR System. Performing Lab [facility] 08/26/2020 12:18 EST [facility] Swab 08/25/2020 9:59 EST 08/25/2020 15:44 EST us Provider Outr Resulting Lab MICROBIOLOGY - GENER AL ORDERABLES Final Result [facility] [address] [place] [address] documented in this encounter Visit Diagnoses Not on filedocumented in this encounter Additional Health Concerns Infection Onset Date Last Indicated Resolved Time COVID-19 08/25/2020 08/25/2020 09/24/2020 22:1 5 EDT Influenza 06/09/2022 06/09/2022 06/19/2022 22:1 5 EST documented as of this encounter Care Teams Consumer Recruiter Relationship Specialty Start Date End Date Jesus Alberto Wilson MD PCP - General 05/05/15 documented as of this encounter
--- OUTSIDE RECORDS SUMMARY | 2024-06-07 00:43 | XMS_ITS | Encounter Summary ---
[place] [address] Care Team Providers Care Drill Hand Name Role Phone Jesus Alberto Wilson MD Primary Care Provider [phone] Encounter Details Date Type Department Care Team (Late st Contact Info) Description 07/21/2010 4:15 PM EST Office Visit Dermatology [address] [facility] [address] [place], [place] [id number] Kai Pisano MD [address] [facility] [place] [address] Social History Tobacco Use Types Packs/Day Years Used Date Smoking Tobacco: Never Assessed Sex and Gender Information Value Date Recorded Sex Assigned at Not on file Gender Identity Not on file Sexual Orientation Not on file documented as of this encounter Plan of Treatment Not on file documented as of this encounter Visit Diagnoses Not on filedocumented in this encounter Care Teams Drill Hand Relationship Specialty Start Date End Date Jesus Alberto Wilson MD [address] [place], [place] [id number] PCP - General 05/18/10 06/02/16 documented as of this encounter
--- OUTSIDE RECORDS SUMMARY | 2024-06-07 00:43 | XMS_ITS | Encounter Summary ---
Author [facility] [place] [address] Care Team Providers Care Passenger Tire Inspector Name Role Phone Nicole Reed MD Primary Care Provider [phone] Reason for Visit * Reason Comments Follow-up Encounter Details Date Type Department Care Team (Late st Contact Info) Description 06/03/2016 9:30 AM EST Office Visit Dermatology at [place] [address] [facility] [place] [address] Kai Pisano MD [address] [facility] [place] [address] Seborrheic keratosis; Telangiectasia; Poikiloderma of [place]; Intertrigo Social History Tobacco Use Types Packs/Day Years Used Date Smoking Tobacco: Never Sex and Gender Information Value Date Recorded Sex Assigned at Not on file Gender Identity Not on file Sexual Orientation Not on file documented as of this encounter Progress Notes * Kai Pisano MD - 06/03/2016 9:30 AM EST PROBLEM: 1. Changing lesions of concern left and right breasts. 2. Neck discoloration. 3. History of under breast irritation. Lata follows up for chief complaint changing lesions on her left and right breasts. Also she would like me to address 2 other concerns that she raises, a rash that she has had underneath her breasts and discoloration on her neck that seemingly was associated with a time when she said she took Keflex. Physical examination reveals a seborrheic keratosis on the left lateral breast, and what appears to be a mat telangiectasia on the right lateral breast. She was reassured about both of these. She has no intertrigo today under her breasts, but some faint erythema. She is big-breasted and certainly at risk for intertrigo. 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 She is blue-eyed and fair-skinned. A/P: 1. Seborrheic keratoses, mat telangiectasia, left and right breasts respectively. a. Patient reassured. b. No treatment necessary. 2. Intertrigo submammary breast. a. Discussed measures to combat this including wearing cotton bras, use of baby powder, use of a cotton handkerchief underneath bra to help to minimize moisture in this area, use of zinc oxide ointment (not A and D, not Desitin) for acute flares. 3. 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 a. Described this as a capillary dilatory response to photo exposure/damage. b. Discussed the option vitamin C creams to try and fade it. c. Patient is really not overly concerned, just wanted to know what this was. d. Reassured patient that she can likely take Keflex without concern as this was not the result of any kind of allergic reaction to her Keflex. cc: Nicole Reed MD documented in this encounter Plan of Treatment Not on file documented as of this encounter Visit Diagnoses Diagnosis Seborrheic keratosis Other seborrheic keratosis Telangiectasia Other and unspecified capillary diseases Poikiloderma of [place] Other dyschromia Intertrigo Other specified erythematous condition documented in this encounter Care Teams Passenger Tire Inspector Relationship Specialty Start Date End Date Nicole Reed MD [address] [place] [address] PCP - General General Internal Medicine 06/03/16 documented as of this encounter
--- OUTSIDE RECORDS SUMMARY | 2024-06-07 00:43 | XMS_ITS | Encounter Summary ---
Author Organization [facility] Address [address] [place] [address] Care Team Providers Care Electrical Wiring Lineman Name Role Phone Jesus Alberto Wilson MD Primary Care Provider Unav ailable Encounter Details Date Type Department Care Team (Late st Contact Info) Description 06/10/2022 Lab Requisition [facility] Pathology & Laboratory Medicine - [address] [id number] Outr Resulting Lab, Provider Social History Tobacco [...] Comments ZZCOVID-19 TEST [facility] PCR Today 06/09/2022 10:15 EST COVID-19 TESTING Routine 06/09/2022 10:1 5 EST documented in this encounter Results * COVID-19 TEST [facility] PCR (06/09/2022 10:15 EST) Swab 06/09/2022 10:1 5 EST 06/10/2022 19:57 EST us Provider Outr Resulting Lab MICROBIOLOGY - GENER AL ORDERABLES Final Result [facility] [address] [place] [address] * COVID-19 TESTING (06/09/2022 10:15 EST) COVID-19 rt-PCR Result Negative Negative 06/11/2022 15:00 EST [facility] Comment: This test has not [...] the authorization is terminated or revoked sooner. Negative results do not preclude 2019-nCoV infection and should not be used as the sole basis for treatment or other patient management decisions. Negative results must be combined with clinical observations, patient history, and epidemiological information. Performed on the [employer] instrument Performing Lab Dexter [facility] 06/11/2022 15:00 [facility] Swab 06/09/2022 10:1 5 EST 06/10/2022 19:57 EST us Provider Outr Resulting Lab MICROBIOLOGY - GENER AL ORDERABLES Final Result [facility] [address] [place] [address] documented in this encounter Visit Diagnoses Not on filedocumented in this encounter Additional Health Concerns Infection Onset Date Last Indicated Resolved Time Influenza 06/09/2022 06/09/2022 06/19/2022 22:1 5 EST documented as of this encounter Care Teams Electrical Wiring Lineman Relationship Specialty Start Date End Date Jesus Alberto Wilson MD PCP - General 05/05/15 documented as of this encounter
--- OUTSIDE RECORDS SUMMARY | 2024-06-07 00:43 | XMS_ITS | Encounter Summary ---
Author Organization [facility] Address [address] [place] [address] Care Team Providers Care Snuff Grinder Name Role Phone Unavailable Primary Care Provider Unavailabl e Encounter Details Date Type Department Care Team (Late st Contact Info) Description 04/04/2007 Results Only [facility] [place] [facility] [address] [place] [address] Zonia Christie MD [address] [place] [address] [place] [address] Social History Tobacco Use Types Packs/Day Years [...] Priority Date/Time Associated Diagnosis Comments CYTOPATHOLOGY Routine 04/04/2007 0:00 EDT documented in this encounter Results * CYTOPATHOLOGY (04/04/2007 0:00 EDT) Pathology Report: CYTOPATHOLOGY REPORT Reports generated via electronic interface contain original data; however they are lacking the format of the original report. Caution should be taken when reading/interpreti ng unformatted reports. Name: ? DOMINGO ROOT ? Accession #: ? [id number] : ? 1955 (Age: 51) ??F ?Collect Date: ? 04/04/2007 Location: ? [facility] ? Receive Date: ? 04/05/2007 Provider: ?ZONIA CHRISTIE MD Copy to: ? Specimen/Source: ?ThinPrep Pap Test, Cervix/Endocervix, processed on [employer] ThinPrep Imaging System, with manual evaluation Last Menstrual Period: ? Other: ? HPVA - HPV testing requested if ASC-US on the current ThinPrep Pap test. ? SPECIMEN ADEQUACY ? Satisfactory for Evaluation - transformation zone component present GENERAL CATEGORIZATION ? Negative for Intraepithelial Lesion or Malignancy ? Document reviewed and electronically signed by: ? Dianelys Arreola, [place](ASCP)(IAC) ? Report Date: ??04/11/2007 14:48 End of Report [facility] 04/04/2007 04/05/2007 us Zonia Christie MD PATHOLOGY ORDERABLES Final Resu lt [facility] [address] [place] [address] documented in this encounter Visit Diagnoses Not on filedocumented in this encounter
--- OUTSIDE RECORDS SUMMARY | 2024-06-07 00:43 | XMS_ITS | Encounter Summary ---
Author Organization [facility] Address [address] [place] [address] Care Team Providers Care High [employer] Social Studies Teacher Name Role Phone Unavailable Primary Care Provider Unavailabl e Encounter Details Date Type Department Care Team (Late st Contact Info) Description 12/06/2002 Results Only [facility] [place] conversion [address] [place] [address] Zonia Christie MD [address] [place] [address] [place] [address] Social History Tobacco Use Types Packs/Day Years [...] Priority Date/Time Associated Diagnosis Comments CYTOPATHOLOGY Routine 12/06/2002 0:00 EDT documented in this encounter Results * CYTOPATHOLOGY (12/06/2002 0:00 EDT) Pathology Report: CYTOPATHOLOGY REPORT Reports generated via electronic interface contain original data; however they are lacking the format of the original report. Caution should be taken when reading/interpreti ng unformatted reports. Name: ? DOMINGO ROOT ? Accession #: ? [id number] : ? 1955 (Age: 47) ??F ?Collect Date: ? 12/06/2002 Location: ? [facility] ? Receive Date: ? 12/09/2002 Provider: ?ZONIA CHRISTIE MD Copy to: ? Specimen/Source: ?ThinPrep Pap Test, Cervix/Endocervix Last Menstrual Period: ? 11/08/02 Other: ? HPVA - HPV testing requested if ASC-US on the current ThinPrep Pap test. ? SPECIMEN ADEQUACY ? Satisfactory for Evaluation - transformation zone component present GENERAL CATEGORIZATION ? Negative for Intraepithelial Lesion or Malignancy ? Document reviewed and electronically signed by: ? MARIA ALEJANDRA Graves(ASCP) ? Report Date: ??12/11/2002 13:38 End of Report [facility] 12/06/2002 12/09/2002 us Zonia Christie MD PATHOLOGY ORDERABLES Final Resu lt [facility] [address] [place] [address] documented in this encounter Visit Diagnoses Not on filedocumented in this encounter
--- OUTSIDE RECORDS SUMMARY | 2024-06-07 00:43 | XMS_ITS | Clinical Summary ---
Author Organization [facility] Address [address] [place] [address] Care Team Providers Care Supplier Quality Engineer Name Role Phone Jesus Alberto Wilson MD Primary Care Provider Unav ailable Social History Tobacco Use Types Packs/Day Years Used Date Smoking Tobacco: Never Assessed Comments Unknown Sex and Gender Information Value Date Recorded Sex Assigned at Not on file Legal Sex Female 18:24 EST Gender Identity Not on file Sexual Orientation Not on file Plan of Treatment Health Maintenance Due Date Last Done Comments Hepatitis C Screen 1955 Fall Risk Screening 11/19/2019 COVID-19 Vaccine ( season) 2024 RSV Immunization ( o r 60+ Years) (1 - 1-dose 75+ series) 2029 Care Teams Supplier Quality Engineer Relationship Specialty Start Date End Date Jesus Alberto Wilson MD PCP - General 05/05/15
--- OUTSIDE RECORDS SUMMARY | 2024-06-07 00:43 | XMS_ITS | Referral Summary ---
Author Organization [facility] Address [address] [place] [address] Care Team Providers Care Machine Tester Name Role Phone Jesus Alberto Wilson MD Primary Care Provider Unav ailable Social History Tobacco Use Types Packs/Day Years Used Date Smoking Tobacco: Never Assessed Comments Unknown Sex and Gender Information Value Date Recorded Sex Assigned at Not on file Legal Sex Female 18:24 EST Gender Identity Not on file Sexual Orientation Not on file Plan of Treatment Not on file Care Teams Machine Tester Relationship Specialty Start Date End Date Jesus Alberto Wilson MD PCP - General 05/05/15
--- OUTSIDE RECORDS SUMMARY | 2024-06-07 00:43 | XMS_ITS | Encounter Summary ---
Author Organization [facility] Address [address] [place] [address] Care Team Providers Care Electrical Maintenance Engineer Name Role Phone Unavailable Primary Care Provider Unavailabl e Encounter Details Date Type Department Care Team (Late st Contact Info) Description 07/10/[address] [facility] [place] [facility] [address] [place] [address] Zonia Christie MD [address] [place] [address] [place] [address] Social History Tobacco Use Types Packs/Day Years [...] Priority Date/Time Associated Diagnosis Comments CYTOPATHOLOGY Routine 07/10/2001 0:00 EST SURGICAL PATHOLOGY Routine 07/10/2001 0:00 EST documented in this encounter Results * CYTOPATHOLOGY (07/10/2001 0:00 EST) Pathology Report: CYTOPATHOLOGY REPORT Reports generated via electronic interface contain original data; however they are lacking the format of the original report. Caution should be taken when reading/interpreti ng unformatted reports. Name: ? DOMINGO ROOT ? Accession #: ? [id number] : ? 1955 (Age: 45) ??F ?Collect Date: ? 07/10/2001 Location: ? [facility] ? Receive Date: ? 07/11/2001 Provider: ?ZONIA CHRISTIE MD Copy to: ?AGUSTINA GILBERT MD ? Specimen/Source: ?ThinPrep Pap Test, Cervix/Endocervix Last Menstrual Period: ? 05/02/01 Hormonal/Contracep tive Status: ? Provera ? SPECIMEN ADEQUACY ? Satisfactory for Evaluation - transformation zone component present GENERAL CATEGORIZATION ? Negative for Intraepithelial Lesion or Malignancy ? Document reviewed and electronically signed by: ? MARIA ALEJANDRA Graves(ASCP) ? Report Date: ??07/12/2001 09:50 End of Report [facility] 07/10/2001 07/11/2001 us Zonia Christie MD PATHOLOGY ORDERABLES Final Resu lt Performing Organization Address City/State/[facility] Co de Phone Number [facility] [address] [place] [address] * SURGICAL PATHOLOGY (07/10/2001 0:00 EST) Pathology Report: SURGICAL PATHOLOGY REPORT Reports generated via electronic interface contain original data; however they are lacking the format of the original report. Caution should be taken when reading/interpreting unformatted reports. Name: ? DOMINGO ROOT ? Accession #: ? [id number] ? : ? 1955 (Age: 45) ??F ? Collect Date: ? 07/10/2001 ? Location: ? [facility] ? Receive Date: ? 07/10/2001 ? Provider: ZONIA CHRISTIE MD Copy to: DEVIKA GILBERT MD ? Final Pathologic Diagnosis: ? Endometrium, biopsy: 1. ?Fragments of weakly proliferative endometrium with tubal metaplasia. 2. ?Portions of basalis endometrial tissue. 3. ?No evidence of chronic endometritis, polyp, hyperplasia or malignancy. Comment: ? This case has been reviewed at the intradepartmental consultation conference on 07/11/01. ??(Dr. Becerril)/ Document reviewed and electronically signed by: Nohelia Becerril MD Report ??Date: 07/11/2001 17:58 By the signature above, the attending physician certifies that he/she has personally conducted a gross and/or microscopic examination of the described specimens and rendered or confirmed the above diagnosis. Specimen(s) Received: ? Endometrial bx Clinical History: ? AUB, had Provera 06/15/01 x10 days Gross Description: ? Received in formalin labelled Root and endo bx are 2.5 x 1.5 x 0.3 cm of multiple bustillo-red predominantly mucoid soft tissue fragments. ??The specimen is entirely submitted in one cassette. ??(Reza Campa)/[facility] End of Report [facility] 07/10/2001 07/10/2001 15: 22 EST us Zonia Christie MD PATHOLOGY ORDERABLES Final Resu lt [facility] [address] [place] [address] documented in this encounter Visit Diagnoses Not on filedocumented in this encounter
--- NOTE | 2024-06-07 12:30 | DI.US_ITS ---
APPROVED REPORT EXAM: Comprehensive 2D, Doppler, and color-flow Echocardiogram Patient Location: Out-Patient Watch Train Inspector: Mamadou Pettit RDCS (AE) Indications: Systolic murmur Conclusion Normal left ventricular wall thickness and chamber size. Ejection fraction is 60 to 65%. Wall motio n is normal Normal right ventricular size and function Both atria are normal in size There is no structural or hemodynamically significant valvular disease Wall motion Left Ventricle The left ventricle is normal size. The left ventricular systolic function is normal. The left ventric ular ejection fraction is within the normal range. There is normal left ventricular wall thickness. T here is normal LV segmental wall motion. There is no ventricular septal defect visualized. LVEF is 60 -65%. Right Ventricle The right ventricle is normal size. The right ventricular systolic function is normal. Atria The left atrium size is normal. The right atrium size is normal. The interatrial septum is intact wit h no evidence for an atrial septal defect. Aortic Valve The aortic valve is normal in structure. Aortic valve is trileaflet. There is no aortic valvular sten osis. No aortic regurgitation is present. Mitral Valve The mitral valve is normal in structure. No evidence of mitral valve stenosis. Trace mitral regurgita tion. Tricuspid Valve The tricuspid valve is normal in structure. There is no tricuspid valve stenosis. Trace tricuspid reg urgitation. Unable to assess PA pressure. Pulmonic Valve The pulmonary valve is normal in structure. There is no pulmonic valvular stenosis. There is no pulmo pema valvular regurgitation. Great Vessels The aortic root is normal in size. The ascending aorta is normal in size. Aortic arch is normal in ca liber. IVC is normal in size and collapses >50% with inspiration. Pericardium There is no pericardial effusion. 2D Dimensions IVSD d PLAX 0.94 cm F: 0.6-1.0 Ao Root d 2.18 cm F: 2.7 - 3.3 LVPW d PLAX 0.91 cm F: 0.6 - 1.0 Ao Asc Diam d 2.86 cm F: 2.3 - 3.1 LVID d PLAX 4.85 cm F: 3.8 - 5.2 LVDs 3.14 cm F: 2.2 - 3.5 LV EF Teichholz 64.6 % FS 35.35 % LV EDV (Teich) 110.2 mL LV ESV (Teich) 39.0 mL Stroke Vol Index (Teich) 37.29 M-Mode TAPSE 2.33 cm (M/F) >1.7 Auto EF LV EDV A4C 100.3 mL LV EDV A2C 92.2 mL LV EDV BP 95.9 mL LV ESV A4C 38.5 mL LV ESV A2C 35.4 mL LV ESV BP 38.5 mL LVEF(%) A4C 61.7 % LVEF(%) A2C 61.6 % LVEF(%) BP 59.9 % LV SV A4C 61.9 ml LV SV A2C 56.8 ml LV SV BP 57.4 ml LV CO A4C 4.8 L/min LV CO A2C 4.4 L/min LV CO BP 4.6 L/min HR A4C 77.59 BPM HR A2C 77.09 BPM LV EDV Index (BP) LA Volume LA Length A4C 4.4 cm LA Length A2C 4.3 cm LA Area A4C s 12.80 cm2 LA Area A2C s 9.58 cm2 LA Vol A4C A-L 31.75 mL LA Vol A2C A-L 18.14 mL LA Vol Biplane A-L 24.2 mL LA Vol/BSA A4C A-L LA Vol/BSA A2C A-L LA Vol/BSA BP A-L 12.7 mL/m2 LA Vol A4C MOD 30.8 mL LA Vol A2C MOD 16.1 mL LA Vol BP MOD 22.2 mL RA Volume RA Area A4C 8.9 cm2 RA ESV A4C (A-L) 19.4mL RA Vol/BSA A4C A-L RA Length A4C 3.4 cm RA ESV A4C (MOD) 18.5mL LV Diastology MV E' medial 0.084 (>0.07 m/s) MV E Vmax 0.61 (0.4-1.3 m/s) MV E/E' MED 7.30 (<14) MV A Vmax 0.80 (0.4-1.3 m/s) MV E' lateral 0.101 (>0.1 m/s) E/A Ratio 0.8 MV E/E' LAT 6.08 (<14) MV E' Average 0.092 m/s MV E/E'(average) 6.63 Aortic Valve AoV Vmax 1.65 m/s LVOT Vmax 1.31 m/s AoV Peak Grad 10.9 mmHg LVOT Peak Grad 6.9 mmHg AoV Area (Vmax) 1.76 cm2 LVOT VTI 0.272 m AoV VTI 0.338 m LVOT Mean Grad 4.0 mmHg AoV Mean Donn. 1.14 m/s LVOT SV 60.48 mL AoV Mean Grad 5.8 mmHg LVOT Diam s 1.65 cm AoV Area (VTI) 1.79 cm2 AV Regurg Peak Gr. 10.92 mmHg Velocity Ratio 0.79 Mitral Valve MV DT 223 (160-240 msec) MV Vmax TIPS 0.82 m/s MV Mean Grad 1.2 (<2mmHg) MV VTI 0.222 m Pulmonary Valve PV Vmax 1.38 (0.5-1.5 m/s) RVOT Vmax 0.95 m/s PV Peak Grad 7.6 mmHg RVOT Peak Gr. 3.6 mmHg PV Mean Donn 0.94 m/s RVOT VTI 0.189 m PV Mean Grad 4.1 mmHg RVOT Mean Gr. 1.8 mmHg
== END 2024-06-07 00:57 ==
LOC: DI 00:37
PROVIDERS: PCP Nurse Practitioner; Visit Provider Nurse Practitioner
DX: R01.1 Cardiac murmur, unspecified (principal)
CPT/HCPCS: 93306

== ENCOUNTER 2024-06-10 13:13 | Outpatient (CLI) | payer MEDICARE, SELFPAY ==
[2024-06-10 10:51] LABS: Abs Immature Grans 0.01 10^3/uL (0.0-0.06); Absolute Basophil Count 0.07 10^3/uL (0.0-0.2); Absolute Eosinophil Count 0.14 10^3/uL (0.0-0.7); Absolute Lymphocyte Count 1.75 10^3/uL (1.2-3.4); Absolute Monocyte Count 0.38 10^3/uL (0.1-0.8); Absolute Neutrophil Count 2.99 10^3/uL (1.2-6.7); Basophils % 1.3 %; Eosinophils % 2.6 %; HCT 36.8 % (36.0-46.0); HGB 12.1 g/dL (11.2-15.7); Immature Grans % 0.2 %; Lymphocytes % 32.8 %; MCH 29.6 pg (27.0-33.0); MCHC 32.9 % (32.0-36.0); MCV 90 fL (80-95); MPV 8.8 fL (8.0-11.0); Monocytes % 7.1 %; Platelet Count 343 10^3/uL (130-400); RBC 4.09 10^6/uL (3.93-5.22); RDW 12.6 % (11.7-14.6); RDW-SD 41.3 fL; WBC 5.34 10^3/uL (4.4-10.8)
[2024-06-10 11:13] LABS: ALT 19 U/L (14-59); AST 21 U/L (15-37); Albumin 3.6 g/dL (3.4-5.0); Alkaline Phosphatase 124 U/L (46-116); Anion Gap 6.8 mmol/L (3-11); BUN 17 mg/dL (7-18); Bilirubin, Total 0.38 mg/dL (0.2-1.0); CO2 27.2 mmol/L (21.0-32.0); CREATININE 0.9 mg/dL (0.55-1.02); Calcium 9.3 mg/dL (8.5-10.1); Calculated LDL 110 mg/dL (<100); Chloride 107 mmol/L (98-107); Cholesterol 205 mg/dL (<200); Glucose 115 mg/dL (74-106); HDL Cholesterol 75 mg/dL (40-60); Potassium 4.3 mmol/L (3.5-5.1); Sodium 141 mmol/L (136-145); Triglyceride 102 mg/dL (<150)
== END 2024-06-10 13:14 | disposition home or self-care (01) ==
LOC: LBO 13:16
PROVIDERS: PCP Nurse Practitioner; Visit Provider Nurse Practitioner
DX: E78.00 Pure hypercholesterolemia, unspecified (principal); R73.01 Impaired fasting glucose
CPT/HCPCS: 36415; 80053; 80061; 83036; 85025

== ENCOUNTER 2024-11-25 03:08 | Outpatient (CLI) | payer MEDICARE, SELFPAY ==
--- NOTE | 2024-11-25 07:45 | DI.MAMMO_ITS ---
Exam(s) MAMMO SCREENING EXAM: MAMMO SCREENING CLINICAL HISTORY: screening,z12.39 TECHNIQUE: Bilateral full field digital CC and MLO mammographic images were obtained with 3D tomosyn thesis and utilizing computer aided detection (CAD). COMPARISON: Available for comparison. FINDINGS: Masses/Architectural Distortion: No suspicious masses or areas of architectural distortion are presen t. There has been interval decrease in size of the patient's known cyst in the upper outer quadrant of the left breast. Microcalcifications: No suspicious pleomorphic-type are seen. Skin Thickening/Nipple Retraction: None. IMPRESSION: 1. No significant interval change with no specific features of malignancy noted. 2. Unless there is more urgent need, screening mammography is recommended, as per [employer] guidelines. BI-RADS Category 2 - Benign Findings Breast Density - Category C - The breast are heterogeneously dense, which may obscure small masses. Breast density Category C or D implies that the patient has dense breast tissue. Dense breast tissue can make it harder to find cancer on a mammogram. Dense breast tissue is also associated with an incr eased risk of breast cancer. This information about the result of the mammogram report was provided to the patient to raise their awareness. Use this report when you speak with the patient about their risks for breast cancer, which includes their family history. At that time, you may recommend additional screening tests (Ultrasoun d or MRI) as these tests may add significant information. A negative radiographic report should not delay biopsy if a dominant or clinically suspicious mass is present. Up to ten percent of cancers are not identified on mammography. A negative report may reinforce clinical impression. Adenosis and dense breasts may obscure an underlying neoplasm. False positive reports average 6 to 10%. Patient will receive a letter notifying them of these results.
== END 2024-11-25 03:28 ==
LOC: DI 03:08
PROVIDERS: PCP Nurse Practitioner; Visit Provider Nurse Practitioner
DX: Z12.31 Encounter for screening mammogram for malignant neoplasm of breast (principal); R92.333 Mammographic heterogeneous density, bilateral breasts; D24.2 Benign neoplasm of left breast
CPT/HCPCS: 77063; 77067

== ENCOUNTER 2025-01-09 09:17 | Outpatient (CLI) | payer MEDICARE, SELFPAY ==
--- NOTE | 2025-01-09 13:08 | DI.RAD_ITS ---
Exam(s) XR FOOT RT COMPLETE EXAM: XR FOOT RT COMPLETE CLINICAL HISTORY: pain in right heel,M79.671. TECHNIQUE: 2D digital imaging was performed of the right foot. Three images were obtained. AP, oblique and lateral views were obtained. COMPARISON: No exams were available for comparison FINDINGS: BONES: No acute fracture is present. No bony destructive lesion is seen. There is a small plantar calcaneal spur. There is an osseous density anterior to the ankle joint on the lateral view which may represent a loose body. JOINTS: No dislocation present. Degenerative changes are seen in the foot particularly at the 1st metatarsophalangeal joint. SOFT TISSUE: Normal. IMPRESSION: Small plantar calcaneal spur. DATA REPOSITORY: RADIATION DOSE DELIVERED:
== END 2025-01-09 09:37 ==
LOC: DI 09:17
PROVIDERS: PCP Nurse Practitioner; Visit Provider Nurse Practitioner Family
DX: M79.671 Pain in right foot (principal); M77.31 Calcaneal spur, right foot
CPT/HCPCS: 73630